=== PATIENT | female | born 1935 | race Caucasian/White ===

== ENCOUNTER → 2017-06-26 14:50 | Outpatient (CLI) | payer MEDICARE | END | disposition home or self-care (01) | LOC: D.MAMMO 09:45 | DX: Z12.31 Encounter for screening mammogram for malignant neoplasm of breast (principal) ==

== ENCOUNTER 2017-09-10 15:37 | Observation (INO) | payer MEDICARE ==
[~2017-09-10] VITALS: Ht 170.2 cm; Wt 72.6 kg
[2017-09-10 16:21] LABS: BASOPHILS 0.3 % (0-2); EOSINOPHILS 1.9 % (0-7); HEMATOCRIT 43.2 % (36.0-48.0); HEMOGLOBIN 14.2 g/dL (12-16); IMMATURE GRANULOCYTES 0.2 % (0-5); LYMPHOCYTES 28.6 % (15-50); MCH 31.4 pg (26.0-34.0); MCHC 32.9 g/dL (31.0-37.0); MCV 95.6 fL (80.0-100.0); MEAN PLATELET VOLUME 10.1 fL (7.4-10.4); MONOCYTES 4.6 % (2-11); NEUTROPHILS 64.4 % (40-80); PLATELET COUNT 210 10x3/uL (130-400); RBC 4.52 10x6/uL (4.00-5.40); RDW 12.6 % (11.5-14.5); WBC 6.5 10x3/uL (4.8-10.8)
[2017-09-10 16:41] LABS: APTT 25.6 SECONDS (22.8-39.4); INR 0.84 (0.85-1.17); PROTIME 11.4 SECONDS (11.6-15.0)
[2017-09-10 16:46] LABS: ALBUMIN 3.8 g/dL (3.4-5.0); ALKALINE PHOSPHATASE 97 U/L (46-116); ALT (SGPT) 27 U/L (10-68); CALC OSMOLALITY 284 mosm/kg (275-300); CALCIUM 9.2 mg/dL (8.5-10.1); CARBON DIOXIDE 26.1 mmol/L (21.0-32.0); CHLORIDE - SERUM 102 mmol/L (98-107); CREATININE - SERUM 0.7 mg/dL (0.6-1.3); GLUCOSE 155 mg/dL (74-106); SODIUM 140 mmol/L (136-145); UREA NITROGEN 20 mg/dL (7-18); eGFR NON AFRICAN AMERICAN 85 mL/min (90-120)
[2017-09-10 19:30] VITALS: BP 150/52
[2017-09-10 22:21] VITALS: BP 150/52; BMI 25.1
--- NOTE | 2017-09-10 22:21 | NUR ---
REC'D PATIENT SITTING UPRIGHT IN CHAIR AT BEDSIDE. ALERT/ORIENTED X3 VELASQUEZ. MACHINE BINDING FOLDER EQUAL AND STRONG SPEECH CLEAR AND APPROPRIATE. FOLLWS COMMANDS. ASSESSMENT PER ADMIT PACKET. IV PATENT LEFT WRIST SALINE LOCK.
[2017-09-10 23:50] VITALS: BP 145/55
[2017-09-11] MEDS ORDERED: WELCHOL625 MG PO (00:30)
[2017-09-11 03:30] VITALS: BP 132/49
[2017-09-11 05:37] LABS: BASOPHILS 0.3 % (0-2); EOSINOPHILS 2.4 % (0-7); HEMOGLOBIN 12.7 g/dL (12-16); MCH 31.2 pg (26.0-34.0); MCHC 32.6 g/dL (31.0-37.0); MCV 95.8 fL (80.0-100.0); MEAN PLATELET VOLUME 10.4 fL (7.4-10.4); MONOCYTES 7.5 % (2-11); NEUTROPHILS 52.8 % (40-80); PLATELET COUNT 199 10x3/uL (130-400); RBC 4.07 10x6/uL (4.00-5.40); RDW 12.6 % (11.5-14.5); WBC 5.7 10x3/uL (4.8-10.8)
[2017-09-11 05:50] LABS: CALC OSMOLALITY 284 mosm/kg (275-300); CALCIUM 8.3 mg/dL (8.5-10.1); CARBON DIOXIDE 27.9 mmol/L (21.0-32.0); CHLORIDE - SERUM 104 mmol/L (98-107); CREATININE - SERUM 0.6 mg/dL (0.6-1.3); GLUCOSE 112 mg/dL (74-106); POTASSIUM - SERUM 3.7 mmol/L (3.5-5.1); SODIUM 142 mmol/L (136-145); eGFR NON AFRICAN AMERICAN > 90 mL/min (90-120)
[2017-09-11 05:52] LABS: UREA NITROGEN 14 mg/dL (7-18)
[2017-09-11] MEDS ORDERED: BAYER CHEWABLE81 MG PO (06:04)
[2017-09-11] MEDS ORDERED: GLUCOPHAGE1000 MG PO (06:05)
[2017-09-11] MEDS ORDERED: GLUCOPHAGE500 MG PO (06:10)
[2017-09-11] MEDS ORDERED: LANOXIN250 MCG PO (06:11)
[2017-09-11] MEDS ORDERED: NORVASC5 MG PO (06:12)
[2017-09-11] MEDS ORDERED: LOTENSIN20 MG PO (06:17)
[2017-09-11] MEDS ORDERED: CARDURA2 MG PO (06:18)
[2017-09-11] MEDS ORDERED: FISH OIL 1,0001 CA1 PO (06:21)
[2017-09-11] MEDS ORDERED: METAMUCIL FIB1 WAFER PO (06:22)
[2017-09-11] MEDS ORDERED: CALCIUM 500 + D1 TAB PO (06:25)
--- NOTE | 2017-09-11 07:02 | HP ---
PATIENT: SOPHIA CARNEY MEDICAL RECORD: [id number] ACCOUNT: [id number] LOCATION:D.MS [facility] : 37 ADMISSION DATE: 09/10/17 HISTORY AND PHYSICAL EXAMINATION DATE OF ADMISSION: 09/10/2017 CHIEF COMPLAINT: Dysarthria. HISTORY OF PRESENT ILLNESS: The patient is a 81-year-old female who states she was in her normal state of health until approximately 1:00 today. The patient states she has been under a lot of stress, has been having visual disturbance and also having a lot of family issues. The patient was noted to have slurring of her speech by her . This lasted approximately an hour and half to 2 hours. The patient presented to the Emergency Room for evaluation. PAST MEDICAL HISTORY: Significant that she has had a history of having hypertension. She has also had history of SVT, diabetes mellitus, hyperlipidemia, squamous cell carcinoma - skin cancers, peripheral neuropathy secondary to diabetes, postmenopausal syndrome. She is a . FAMILY HISTORY: Mother had myocardial infarction, at 93 years of age, also had malignant tumor of the breast in 2 aunts. Father at 48 years of age of CVA. 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 She is . Former smoker, stopped in 1995. She does drink 2 glasses of wine every . MEDICATIONS: Include Welchol 625 mg 3 tablets p.o. b.i.d., vitamin D 2000 international units once a day, ProAir 90 mcg 2 puffs q. 4 hours p.r.n. shortness of breath, metformin 500 mg 2 tabs p.o. b.i.d. 1 at noon, Lotrel 5/20 one p.o. every day, iron 65 mg 1 p.o. every day, fish oil 200 mg p.o. b.i.d., doxazosin 2 mg daily, digoxin 0.25 p.o. every day, calcium 1200 mg once a day, and aspirin 81 mg once a day. ALLERGIES: HER ALLERGIES ARE ACTOS, CORTISONE, CORTANE, KEFLEX, PEROXIDE WELL SULFA. PAST SURGICAL HISTORY: She had an appendectomy. She has also had a cholecystectomy, hysterectomy, tonsillectomy, and adenoidectomy. REVIEW OF SYSTEMS: CONSTITUTIONAL: She denies any headaches, seizure or syncope. She denies change in visual or auditory acuity. PULMONARY: She denies any shortness of breath, cough or congestion, history of TB, asthma or bronchitis. CARDIOVASCULAR: No chest pain, palpitations, PND or orthopnea. GASTROINTESTINAL: No chronic nausea, vomiting, melena or hematochezia. GENITOURINARY: No urgency, frequency, or dysuria. PHYSICAL EXAMINATION: GENERAL: Currently, the patient is asymptomatic initially in the Emergency Room. VITAL SIGNS: Her pulse 86, respirations 16, her blood pressure 160/69 and O2 HISTORY AND PHYSICAL [id number] SOPHIA CARNEY sat was 96%. HEENT: Head is normocephalic. No lesions. Ears: TMs clear. Eyes: Pupils equal, round and reactive to light. Extraocular movements intact. Nasal cavity, oral cavity and oropharynx clear. NECK: Supple. There is no adenopathy. The patient has no carotid bruits that can be appreciated. HEART: Regular rate without murmurs, gallops or rubs. LUNGS: Clear. ABDOMEN: Soft, bowel sounds are positive. No organomegaly. NEUROLOGIC: She has no neurological deficits noted. Her hand university controller strength is 5/5. Vfiqmq-dnha-eqzpox and yaeu-hm-twzt testing is normal. Tandem gait, heel walking and toe walking. DIAGNOSTIC STUDIES: The patient did have a CT scan showing no evidence of hemorrhagic stroke. She did have some microangiopathic lesions noted. ASSESSMENT: 1. Transient ischemic attack, now resolved. 2. History of hypertension. 3. Diabetes mellitus. 4. Hyperlipidemia. PLAN: The patient will be admitted. She will have carotid Doppler as well as echocardiogram. Also, the patient will be placed on anticoagulants. Continue to evaluate. TRANSINT:[id number] Voice Confirmation ID: [id number] DOCUMENT ID: [id number] MICHELLE MENDEZ MD at 0702 CC: [id number] DICTATION DATE: 09/10/171751 WILDLIFE REMOVAL SPECIALIST: 09/10/171931 ADM IN [facility] [address] [place] [address]
[2017-09-11 07:52] VITALS: BP 128/56
--- NOTE | 2017-09-11 09:00 | NUR ---
PT WAS RECEIVED FROM LOW BREWER. PT IS SITTING UP IN [facility]. SHE OFFERS NO COMPLAINTS. SHE STATES WHEN ALL HER TEST ARE DONE THAT SHE IS GOING HOME. I BELIEVE SHE IS WAITING ON HER ECHO TO BE DONE. GEN- AWAKE AND ALERT- LUNGS- CLEAR. HEART- RRR. ABD- SOFT NT. BS+ EXT. NO EDEMA. GOOD STRENGTH BILATERALLY. SALINE LOCK IS PATENT IN LEFT WRIST. BED IS LOW, SIDE RAILS UP X 2 AND CALL LIGHT IN REACH.
[2017-09-11 10:28] VITALS: Ht 170.2 cm; Wt 72.6 kg
--- NOTE | 2017-09-11 11:53 | NUR ---
PT IS SITTING UP IN CHAIR. SHE HAD HER ECHO CARDIOGRAM AND I TALKED TO DR VALENCIA AND HE STATED THAT AFTER HER ECHO SHE COULD BE DISCHARGED. SHE IS TO CONTIN UE HER PRESENT MEDS AND INCREASE ASA TO 325 MG DAILY. SHE NEEDS FU WITH HIM IN 1 WEEK.
[2017-09-11 12:00] VITALS: BP 155/50
--- NOTE | 2017-09-11 13:17 | NUR ---
SALINE LOCK D'CD. TIP INTACT. PT IS DRESSED AND SITTING UP IN CHAIR. DISCHARGE INSTRUCTIONS GIVEN AND HANDOUTS GIVEN. PT TAKEN TO FRONT OF HOSPITAL BY WHEELCHAIR.
--- NOTE | 2017-09-16 09:02 | EC ---
PATIENT:SOPHIA CARNEY DATE OF SERVICE: 09/10/17 SEX: F MEDICAL RECORD: [id number] DATE OF : 39 LOCATION:D.MS [facility] AGE OF PATIENT: 81 ADMISSION DATE: 09/10/17 REFERRING PHYSICIAN: INTERPRETING PHYSICIAN: KARIS RAMSEY MD ECHOCARDIOGRAM REPORT ECHO CHARGES CLINICAL DIAGNOSIS: ECHOCARDIOGRAPHIC MEASUREMENTS (adult normal given) AC root (d.<3.7cm) cm LV Septum d (<1.2 cm> cm Valve Excursion cm LV Septum (systole) cm Left Atria (s.<4.0cm> cm LVPW d(<1.2cm) cm RV (d.<2.3cm) cm LVPW (sytole) cm LV diastole(<5.6CM) cm MV E-F(>70mm/sec) cm LV systole cm LVOT Diameter cm MV exc.(>10mm) cm Est.ejection fraction (50-75%) % Pericardial Effusion DOPPLER: LVIT cm/sec A cm/sec E cm/sec LA cm/sec RVSP mmHg LVOT cm/sec AOP1/2T m/s Asc. Ao cm/sec RVOT cm/sec RA cm/sec PA cm/sec AV Gradient Peak mmHg AV Mean mmHg AV Area cm MV Gradient Peak mmHg MV Mean mmHg MV Area cm COMMENTS: Ux Design Manager: Apple Thinner: DENNY DATE OF SERVICE: 09/11/2017 PROCEDURE: Echocardiogram. FINDINGS: 1. Left ventricular chamber size is within normal limits. Left ventricular systolic function is normal. Overall ejection fraction estimated at 55%. 2. Left atrium, right atrium, and right ventricular chamber sizes are within normal limits. 3. Valvular structures have normal structure and motion. ECHOCARDIOGRAM REPORT [id number] SOPHIA CARNEY 4. Doppler interrogation only reveals trace mitral regurgitation, trace tricuspid regurgitation. No other valvular insufficiency or stenosis. 5. No evidence of pericardial effusion or left ventricular thrombus. TRANSINT:[id number] Voice Confirmation ID: [id number] DOCUMENT ID: [id number] KARIS RAMSEY MD at 0902 CC: [id number] DICTATION DATE: 09/11/17 1209 EXPERIMENTAL ROCKET SLED MECHANIC: 09/11/17 1235 DIS IN 09/11/[address] [place] [address]
--- NOTE | 2017-11-05 07:19 | DS ---
PATIENT:SOPHIA CARNEY :39 MEDICAL RECORD: [id number] DISCHARGE SUMMARY ADMISSION DATE: 09/10/17 DISCHARGE DATE: 09/11/17 DATE OF ADMISSION: 09/10/2017 DATE OF DISCHARGE: 09/11/2017 CONDITION ON DISCHARGE: Improved. ADMITTING DIAGNOSES: Transient ischemic attack, now resolved; history of hypertension; hyperlipidemia; diabetes mellitus. DISCHARGE DIAGNOSES: Dysarthria, transient ischemic attack, diabetes mellitus, hyperlipidemia, and hypertension. HOSPITAL COURSE: The patient is a healthy 82-year-old female with long-standing history of diabetes mellitus. She states that, at approximately 1:00 p.m., she had developed some visual disturbance. She did have some slurring of her speech. This lasted approximately an hour to two hours. She presented to the Emergency Room. In the Emergency Room, the patient was totally asymptomatic. PHYSICAL EXAMINATION: VITAL SIGNS: Her pulse was 86, respirations 16, blood pressure 160/69, and her O2 sat was within normal. HEENT: Unremarkable. NECK: Supple. There was no adenopathy. HEART: Regular rate and rhythm without murmurs, gallops, or rubs. LUNGS: Clear. The patient had a noncontrast CT scan, showed no hemorrhagic stroke. She did have some microangiopathic lesions noted. The patient was admitted. Carotid Dopplers and echo were performed. Echocardiogram revealed left ventricular chamber size to be within normal limits. Left ventricular systolic function was normal. Overall ejection fraction was 55%. Left atrium, right atrium, and right ventricle chambers were within normal limit. Valvular structures had normal structure and motion. Doppler interrogation only revealed trace mitral regurgitation and trace tricuspid regurgitation. No other valvular insufficiencies or stenosis noted. No evidence of pericardial effusion or left ventricular thrombus. Carotid Dopplers revealed no significant stenosis within either internal carotid arteries. Antegrade flow identified within both vertebral arteries. The remainder of the exam was nonspecific. The patient's symptoms had totally resolved; therefore, the patient was discharged having no further symptoms. DISCHARGE MEDICATIONS: Include Welchol 1875 mg p.o. b.i.d., aspirin 325 daily, metformin 1000 mg p.o. b.i.d. with 500 mg at noon, Lanoxin 0.25 p.o. daily, Norvasc 5 mg once a day, Lotensin 20 mg p.o. daily, Cardura 2 mg p.o. at bedtime, omega-3 one cap daily, Metamucil fiber daily, vitamin D3 500 mg daily. ACTIVITIES: Ad gordon. FOLLOWUP: She will follow up with me on September 18. DIET: 2200-calorie ADA diet. DISCHARGE SUMMARY REPORT [id number] SOPHIA CARNEY TRANSINT:[id number] Voice Confirmation ID: [id number] DOCUMENT ID: [id number] MICHELLE MENDEZ MD at 0719 CC: [id number] DICTATION DATE: 11/03/[address] ENGINEER FREIGHT: 11/04/17 1355 DIS IN 09/11/17 [facility] [address] [place] [address]
== END 2017-09-11 16:30 | disposition home or self-care (01) ==
LOC: D.ER 15:37 → OBSVTIME 17:40 → D.MS 17:40 → D.SDCHOLD 17:40 → D.MS 17:40 → D.SDCHOLD 09-11 15:59 → D.MS 09-11 16:01
PROVIDERS: Emergency Medicine; ADMIT Family Medicine
DX: G45.9 Transient cerebral ischemic attack, unspecified (principal); R47.1 Dysarthria and anarthria; E11.42 Type 2 diabetes mellitus with diabetic polyneuropathy; E78.5 Hyperlipidemia, unspecified; I10 Essential (primary) hypertension

== ENCOUNTER 2018-07-04 22:29 | Outpatient (CLI) | payer MEDICARE ==
[2017-09-11 10:28] VITALS: BMI 25.0
[~2018-07-04 22:29] MED LIST: BAYER CHEWABLE81 MG PO; CALCIUM 500 + D1 TAB PO; CARDURA2 MG PO; FISH OIL 1,0001 CA1 PO; GLUCOPHAGE1000 MG PO; GLUCOPHAGE500 MG PO; LANOXIN250 MCG PO; LOTENSIN20 MG PO; METAMUCIL FIB1 WAFER PO; NORVASC5 MG PO; WELCHOL625 MG PO
== END 2018-07-04 23:59 | disposition home or self-care (01) ==
LOC: D.MAMMO 22:29
DX: Z12.31 Encounter for screening mammogram for malignant neoplasm of breast (principal)

== ENCOUNTER 2019-07-20 08:00 | Outpatient (CLI) | payer MEDICARE ==
[2017-09-11 10:28] VITALS: BMI 25.0
== END 2019-07-20 23:59 | disposition home or self-care (01) ==
LOC: D.MAMMO 08:00
PROVIDERS: ATTEND Family Medicine
DX: Z12.31 Encounter for screening mammogram for malignant neoplasm of breast (principal)

== ENCOUNTER 2019-09-03 08:00 | Outpatient (CLI) | payer MEDICARE ==
[2017-09-11 10:28] VITALS: BMI 25.0
== END 2019-09-03 10:00 | disposition home or self-care (01) ==
LOC: D.MAMMO 08:00
PROVIDERS: ATTEND Family Medicine
DX: R92.2 Inconclusive mammogram (principal)

== ENCOUNTER → 2020-05-10 11:32 | Outpatient (CLI) | payer MEDICARE ==
[2017-09-11 10:28] VITALS: BMI 25.0
== END | disposition home or self-care (01) ==
LOC: D.RT 11:30
PROVIDERS: ATTEND Family Medicine
DX: R06.2 Wheezing (principal); Z20.828 Contact with and (suspected) exposure to other viral communicable diseases

== ENCOUNTER → 2020-07-29 11:19 | Outpatient (CLI) | payer MEDICARE ==
[2017-09-11 10:28] VITALS: BMI 25.0
== END | disposition home or self-care (01) ==
LOC: D.LAB 11:19
PROVIDERS: ATTEND Internal Medicine Pulmonary Disease
DX: Z11.59 Encounter for screening for other viral diseases (principal)

== ENCOUNTER → 2020-08-01 14:49 | Outpatient (CLI) | payer MEDICARE ==
[2017-09-11 10:28] VITALS: BMI 25.0
== END | disposition home or self-care (01) ==
LOC: D.RT 07-27 09:00
PROVIDERS: ATTEND Internal Medicine Pulmonary Disease
DX: R06.09 Other forms of dyspnea (principal); Z11.59 Encounter for screening for other viral diseases

== ENCOUNTER 2020-08-09 16:00 | Outpatient (CLI) | payer MEDICARE ==
[2017-09-11 10:28] VITALS: BMI 25.0
== END 2020-08-09 23:59 | disposition home or self-care (01) ==
LOC: D.MAMMO 16:00
PROVIDERS: ATTEND Family Medicine
DX: Z12.31 Encounter for screening mammogram for malignant neoplasm of breast (principal)

== ENCOUNTER → 2021-02-20 13:08 | Outpatient (CLI) | payer MEDICARE ==
[2017-09-11 10:28] VITALS: BMI 25.0
[2021-02-20 13:55] LABS: ALBUMIN 3.5 g/dL (3.4-5.0); ALKALINE PHOSPHATASE 78 U/L (30-120); ALT (SGPT) 18 U/L (10-68); BILIRUBIN - TOTAL 0.45 mg/dL (0.2-1.3); CALC OSMOLALITY 283 mosm/kg (275-300); CALCIUM 9.9 mg/dL (8.5-10.1); CARBON DIOXIDE 30.6 mmol/L (21.0-32.0); CHLORIDE - SERUM 103 mmol/L (98-107); CREATININE - SERUM 0.7 mg/dL (0.6-1.3); GLUCOSE 123 mg/dL (74-106); POTASSIUM - SERUM 4.5 mmol/L (3.5-5.1); PROTEIN - SERUM 7.3 g/dL (6.4-8.2); SODIUM 141 mmol/L (136-145); UREA NITROGEN 19 mg/dL (7-18); eGFR NON AFRICAN AMERICAN 85 mL/min (90-120)
== END | disposition home or self-care (01) ==
LOC: D.CT 13:08
PROVIDERS: ATTEND Internal Medicine Pulmonary Disease
DX: R04.2 Hemoptysis (principal)

== ENCOUNTER 2021-03-09 09:08 | Day surgery (SDC) | payer MEDICARE ==
[~2021-03-09] VITALS: Ht 165.1 cm; Wt 66.2 kg
[2021-03-09 09:33] LABS: BASOPHILS 0.6 % (0-2); EOSINOPHILS 1.2 % (0-7); HEMATOCRIT 39.2 % (36.0-48.0); HEMOGLOBIN 12.9 g/dL (12-16); LYMPHOCYTES 16.3 % (15-50); MCH 30.1 pg (26.0-34.0); MCHC 32.9 g/dL (31.0-37.0); MCV 91.4 fL (80.0-100.0); MEAN PLATELET VOLUME 7.4 fL (7.4-10.4); NEUTROPHILS 75.9 % (40-80); PLATELET COUNT 211 10x3/uL (130-400); RBC 4.29 10x6/uL (4.00-5.40); RDW 13.8 % (11.5-14.5); WBC 6.6 10x3/uL (4.8-10.8)
[2021-03-09 09:57] LABS: INR 0.97 (0.85-1.17); PROTIME 11.9 SECONDS (11.6-15.0)
[2021-03-09 09:58] LABS: APTT 27.9 SECONDS (22.8-39.4)
[2021-03-09 11:11] LABS: CALC OSMOLALITY 286 mosm/kg (275-300); CALCIUM 8.8 mg/dL (8.5-10.1); CARBON DIOXIDE 30.9 mmol/L (21.0-32.0); CHLORIDE - SERUM 105 mmol/L (98-107); CREATININE - SERUM 0.6 mg/dL (0.6-1.3); GLUCOSE 127 mg/dL (74-106); SODIUM 143 mmol/L (136-145); UREA NITROGEN 13 mg/dL (7-18); eGFR NON AFRICAN AMERICAN > 90 mL/min (90-120)
[2021-03-09 11:12] VITALS: Ht 165.1 cm; Wt 66.2 kg
[2021-03-09] MEDS ORDERED: COREG 3.1253.125 MG PO (11:27)
[2021-03-09] MEDS ORDERED: CRESTOR5 MG PO (11:46)
[2021-03-09] MEDS ORDERED: BREO ELLIPTA 11 EACH INH (11:46)
[2021-03-09] MEDS ORDERED: MERIBIN5 MG PO (11:47)
[2021-03-09] MEDS ORDERED: FLUTICASONE PRO16 GM NASAL (11:47)
[2021-03-09] MEDS ORDERED: FERROUS SULFAT325 MG PO (11:47)
[2021-03-09] MEDS ORDERED: MULTI-DAY VITAM1 TAB PO (11:48)
[2021-03-09] MEDS ORDERED: VITAMIN D325 MC1 PO (11:49)
--- NOTE | 2021-03-09 14:37 | NUR ---
DR HUTCHISON AT BEDSIDE. INFORMED PT IS 92% ON 4L. HE STATED "SHE IS GOING TO BE A LITTLE LOW AFTER RIGHT" PT IS AWAKE AND ALERT AND ORIENTED. STATES NO DIFFICUTLY BREATHING. NOT COUGHING AT ALL. PT LAID FLAT AND STATED NO DIFFICULTY BREATHING.
--- NOTE | 2021-03-09 15:00 | NUR ---
PT OCCASIONAL COUGHING, SPIT UP SMALL RED TINGED SPUTUM ON PAPER TOWEL. [address] HERNANDEZ TO NOTIFY OF SMALL BLOODY SPUTUM. 1530 DR AT BEDSIDE AND SAW SPUTUM MENTIONED ABOVE. PT SWISH AND SPIT WATER TO MOISTEN MOUTH. PER DR. HERNANDEZ PT IS TO BE NPO FOR 2 HOURS- UNTIL 1730. PER DR. HERNANDEZ, RESPIRATORY BROUGHT TO PT AN INCENTIVE SPIROMETER AND TAUGHT PT. RESPIRATORY THERAPIST MOVED O2 LEVEL TO 5L STATING PTS O2 SAT WAS DROPPING PER DR. HERNANDEZ THIS NURSE INFORMED PT TO USE OXYGEN BY NC CONSTANTLY FOR 24 HOURS AND TO USE THE INCENTIVE SPIROMETER THREE TIMES A DAY/10 REPS EACH TIME. THIS NURSE REINFORCED TEACHING ON THE INCENTIVE SPIROMETER. PT VERBALIZED UNDERSTANDING. DR. HERNANDEZ'S OFFICE WILL CALL PT AND CHECK ON PT TOMORROW. 1715 TRIAL OFF OF OXYGEN THERAPY, PT'S O2 SAT DROPPED TO 88 RA, SITTING UPRIGHT TAKING DEEP BREATHS. RETURNED PT TO 2L OF OXYGEN BY NC AND O2 SATS WERE RANGING BETWEEN 90-91. 1722 THIS NURSE CALLED [facility] AND SPOKE TO RO TO REQUEST A RIDE FOR THE PATIENT UPON DISCHARGE AROUND 6PM 1735 PT DRINKING SPRITE WITH NO COMPLICATIONS, THEN ATE A ANSLEY CRACKER WITH NO COMPLICATIONS, O2 SAT [address] HERNANDEZ, THIS NURSE INFORMED PT TO NOT TAKE HER ASPIRIN OR FISH OIL OR ANY NSAIDS UNTIL DR HERNANDEZ ADVISES HER TO. SHEET ON NSAIDS INCLUDED IN DC PACKET. DC TEACHING COMPLETED. 1800 PT VOIDED IN BATHROOM WITHOUT OXYGEN ON , RETURNED TO SIT ON SIDE OF BED BEGINNING TO PUT PANTS AND SHOES ON, O2 SAT DROPPED TO 85. PLACED NC BACK ON PT, 2L, O2 SAT RETURNED TO 91 PIV REMOVED WITH CATHETER INTACT. 1840 [employer] EMPLOYEE BROUGHT PORTABLE O2 TANK AND INSTRUCTED PT ON HOW TO USE, CURRENT SETTING 2L "CONSERVE"--O2 SAT 91 PT VOIDED IN BATHROOM AND FINISHED DRESSING. 1850 PT DC'D VIA ACCOMPANIED BY THIS NURSE WITH ALL BELONGINGS, PORTABLE O2 TANK, NASAL CANNULA ON, AND DC PACKET TO POV WITH DIRECTOR OF FOOD AND NUTRITION FROM [employer] [facility].
== END 2021-03-09 18:50 ==
LOC: D.OPS 09:08
PROVIDERS: Anesthesiology; ATTEND Internal Medicine Pulmonary Disease
DX: R91.8 Other nonspecific abnormal finding of lung field (principal); J98.4 Other disorders of lung; J44.9 Chronic obstructive pulmonary disease, unspecified; J31.0 Chronic rhinitis; I10 Essential (primary) hypertension; R59.1 Generalized enlarged lymph nodes; E11.9 Type 2 diabetes mellitus without complications; J96.11 Chronic respiratory failure with hypoxia; Z87.891 Personal history of nicotine dependence; R59.0 Localized enlarged lymph nodes

== ENCOUNTER 2021-03-10 12:02 | Inpatient (IN) | payer MEDICARE ==
[2021-03-10] VITALS (14 sets, daily range): BP systolic 130–170; BP diastolic 58–74; BMI 28.4
[~2021-03-10] VITALS: Ht 165.1 cm; Wt 83.6 kg
[~2021-03-10 12:02] MED LIST changes: +BREO ELLIPTA 11 EACH INH; +COREG 3.1253.125 MG PO; +CRESTOR5 MG PO; +FERROUS SULFAT325 MG PO; +FLUTICASONE PRO16 GM NASAL; +MERIBIN5 MG PO; +MULTI-DAY VITAM1 TAB PO; +VITAMIN D325 MC1 PO
--- NOTE | 2021-03-10 12:20 | NUR ---
PATIENT TO T3 VIA WHEELCHAIR. ON NASAL O2 AT 2 L/M WITH SPO2 OF 82. O2 INCREASED TO 6L/M WITH INCREASE TO 88%. PATIENT C/O PAIN AROUND CHEST AND BACK "LIKE A BAND". SOB. CXR AND ABGS ORDERED.
--- NOTE | 2021-03-10 12:30 | NUR ---
DR. HERNANDEZ HERE. STATES TX PATIENT TO ICU FOR INTUBATION AND BRONCHOSCOPY.
[2021-03-10 12:45] LABS: BASOPHILS 0.3 % (0-2); EOSINOPHILS 0.3 % (0-7); HEMATOCRIT 39.4 % (36.0-48.0); HEMOGLOBIN 13.1 g/dL (12-16); LYMPHOCYTES 14.9 % (15-50); MCH 30.6 pg (26.0-34.0); MCHC 33.2 g/dL (31.0-37.0); MCV 92.2 fL (80.0-100.0); MEAN PLATELET VOLUME 7.9 fL (7.4-10.4); MONOCYTES 4.9 % (2-11); NEUTROPHILS 79.6 % (40-80); PLATELET COUNT 224 10x3/uL (130-400); RBC 4.27 10x6/uL (4.00-5.40); RDW 13.9 % (11.5-14.5)
--- NOTE | 2021-03-10 12:45 | NUR ---
SUPERVISOR MECHANIC BOILERMAKING NOTIFIED OF NEED FOR ICU BED.
[2021-03-10 12:47] LABS: WBC 9.9 10x3/uL (4.8-10.8)
[2021-03-10 12:56] LABS: APTT 26.6 SECONDS (22.8-39.4); CALC OSMOLALITY 283 mosm/kg (275-300); CARBON DIOXIDE 29.2 mmol/L (21.0-32.0); CHLORIDE - SERUM 104 mmol/L (98-107); CREATININE - SERUM 0.8 mg/dL (0.6-1.3); GLUCOSE 124 mg/dL (74-106); INR 0.99 (0.85-1.17); POTASSIUM - SERUM 4.3 mmol/L (3.5-5.1); PROTIME 12.1 SECONDS (11.6-15.0); SODIUM 141 mmol/L (136-145); UREA NITROGEN 18 mg/dL (7-18); eGFR NON AFRICAN AMERICAN 72 mL/min (90-120)
[2021-03-10 13:11] LABS: ALBUMIN 3.1 g/dL (3.4-5.0); ALKALINE PHOSPHATASE 69 U/L (30-120); ALT (SGPT) 17 U/L (10-68); BILIRUBIN - TOTAL 0.36 mg/dL (0.2-1.3); CREATINE KINASE 54 UL (21-215); TROPONIN-I < 0.017 ng/mL (0.000-0.060)
--- NOTE | 2021-03-10 13:50 | NUR ---
SPO2 NOW 95-97 ON NRB. WAITING ON ROOM ASSIGNMENT FOR ICU BED.
--- NOTE | 2021-03-10 13:55 | NUR ---
CHIEF ANALYTICS OFFICER CALLED AGAIN FOR BED ASSIGNMENT. PATIENT STABLE. AT BEDSIDE.
[2021-03-11] VITALS (24 sets, daily range): BP systolic 120–157; BP diastolic 50–76; BMI 28.4
[2021-03-11 05:11] LABS: BASOPHILS 0.2 % (0-2); EOSINOPHILS 0.4 % (0-7); HEMATOCRIT 36.2 % (36.0-48.0); HEMOGLOBIN 11.9 g/dL (12-16); MCH 30.2 pg (26.0-34.0); MCHC 32.8 g/dL (31.0-37.0); MCV 92.2 fL (80.0-100.0); MEAN PLATELET VOLUME 8.2 fL (7.4-10.4); MONOCYTES 4.3 % (2-11); NEUTROPHILS 82.1 % (40-80); PLATELET COUNT 191 10x3/uL (130-400); RBC 3.92 10x6/uL (4.00-5.40); WBC 8.3 10x3/uL (4.8-10.8)
[2021-03-11 05:24] LABS: ALBUMIN 2.5 g/dL (3.4-5.0); ALKALINE PHOSPHATASE 59 U/L (30-120); ALT (SGPT) 14 U/L (10-68); BILIRUBIN - TOTAL 0.26 mg/dL (0.2-1.3); CALCIUM 8.1 mg/dL (8.5-10.1); CHLORIDE - SERUM 104 mmol/L (98-107); GLUCOSE 108 mg/dL (74-106); PROTEIN - SERUM 5.8 g/dL (6.4-8.2); SODIUM 138 mmol/L (136-145)
[2021-03-11 05:27] LABS: CALC OSMOLALITY 276 mosm/kg (275-300); CREATININE - SERUM 0.4 mg/dL (0.6-1.3); UREA NITROGEN 12 mg/dL (7-18); eGFR NON AFRICAN AMERICAN > 90 mL/min (90-120)
--- NOTE | 2021-03-11 06:13 | NUR ---
AM LABS REVIEWED, NOTHING TO TREAT PER ELECTROLYTE PROTOCOL.
--- NOTE | 2021-03-11 08:25 | NUR ---
UPDATED. BRONCH CONSENT OBTAINED.
--- NOTE | 2021-03-11 10:05 | NUR ---
BRONCH COMPLETED AT BEDSIDE. REMAINS STABLE ON VENT.
--- NOTE | 2021-03-11 11:09 | NUR ---
TF STARTED PER ORDER.
--- NOTE | 2021-03-11 12:29 | NUR ---
WENT INTO [address]. TEMPLETON NOTIFIED.
--- NOTE | 2021-03-11 14:19 | NUR ---
UNCERTAIN IF CVL DRSG WAS CHANGED WED. CHANGED NOW USING STERILE TECHNIQUE. COMPLETE CHG BED BATH GIVEN.
--- NOTE | 2021-03-11 17:57 | NUR ---
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 MYRON MONROY RN, NM, NOTIFIED AND SHE OKAYS THE 2 VISITORS.
--- NOTE | 2021-03-11 19:44 | NUR ---
BEDSIDE SHIFT REPORT RECEIVED. PT INTUBATED AND SEDATED. 8.0 ETT, 24 @LIP. 20G TO RIGHT AC WITH NS @75ML/HR AND PROPOFOL @60MEQ/KG/MIN. BARR WITH CLEAR YELLOW URINE. BILAT WRISTS RESTRAINTS WITH RADIAL PULSES PALPABLE. SCD'S IN PLACE. 0GT ASCULATED IN PLACE WITHOUT RESIDUAL TUBE FEED WITH PULMACARE @20ML/HR AND 10ML H20 FLUSH Q1H. NO FAMILY AT BEDSIDE AT THIS TIME. WILL CONT TO ASSESS.
--- NOTE | 2021-03-11 22:33 | NUR ---
PT GILMER CARNEY CALLED, PASSWORD CONFIRMED AND PT UPDATED ON PT STATUS, DISCUSSED DR HERNANDEZ TO PREFORM BRONCHOSCOPEY IN MORNING 03/12/21, TELEPHONE CONSENT OBTAINED AND PLACED IN PT CHART.
[2021-03-12] VITALS (25 sets, daily range): BP systolic 130–161; BP diastolic 52–71
--- NOTE | 2021-03-12 00:44 | NUR ---
PT TUBE FEEDING STOPPED AT 0000 FOR PROCEDURE IN MORNING.
--- NOTE | 2021-03-12 02:59 | NUR ---
FULL BED BATH WITH SOAP, WATER AND CHG, COMPLETE LINEN AND GOWN CHANGED. BARRIER CREAM APPLIED TO CARSON AREA. PT REPOSTIONED. RESTRAINTS SECURED. NO DISTRESS NOTED. WILL CONT TO MONITOR.
[2021-03-12 06:15] LABS: BASOPHILS 0.1 % (0-2); EOSINOPHILS 0 % (0-7); HEMATOCRIT 34.5 % (36.0-48.0); HEMOGLOBIN 11.6 g/dL (12-16); LYMPHOCYTES 8.4 % (15-50); MCH 30.6 pg (26.0-34.0); MCHC 33.5 g/dL (31.0-37.0); MCV 91.3 fL (80.0-100.0); MEAN PLATELET VOLUME 8.6 fL (7.4-10.4); MONOCYTES 2.1 % (2-11); NEUTROPHILS 89.4 % (40-80); PLATELET COUNT 197 10x3/uL (130-400); RBC 3.78 10x6/uL (4.00-5.40); RDW 13.8 % (11.5-14.5); WBC 6.4 10x3/uL (4.8-10.8)
[2021-03-12 06:20] LABS: ALBUMIN 2.2 g/dL (3.4-5.0); ALKALINE PHOSPHATASE 64 U/L (30-120); ALT (SGPT) 19 U/L (10-68); BILIRUBIN - TOTAL 0.22 mg/dL (0.2-1.3); CALC OSMOLALITY 284 mosm/kg (275-300); CALCIUM 8.2 mg/dL (8.5-10.1); CARBON DIOXIDE 24.8 mmol/L (21.0-32.0); CHLORIDE - SERUM 107 mmol/L (98-107); CREATININE - SERUM 0.5 mg/dL (0.6-1.3); GLUCOSE 154 mg/dL (74-106); POTASSIUM - SERUM 4.1 mmol/L (3.5-5.1); PROTEIN - SERUM 5.9 g/dL (6.4-8.2); SODIUM 142 mmol/L (136-145); UREA NITROGEN 11 mg/dL (7-18); eGFR NON AFRICAN AMERICAN > 90 mL/min (90-120)
--- NOTE | 2021-03-12 07:10 | NUR ---
REPORT RECEIVED FROM OFF GOING NURSE AND PATIENT CARE ASSUMED. PATIENT LAYING IN BED ON BACK WITH HOB ELEVATED [address] PT ON VENT. VSS. ALL LINES TUBES AND BARR CHECKED. WILL CONTINUE WITH PLAN OF CARE. SR UP X 2 BED IN LOW POSITION AND CALL LIGHT IN REACH.
--- NOTE | 2021-03-12 07:45 | NUR ---
PATIENTS CALLED. ANSWERED QUESTIONS TO SATISFACTION.
--- NOTE | 2021-03-12 09:20 | NUR ---
PATIENT UNDERWENT BRONCHOSCOPY WITH DR HERNANDEZ AND RT KRISTEN. VSS. STAT CXR COMPLETED. NG TUBE VERIFIED BY AUSCULATATION AND CXR. TUBE FEEDING RESUMED. WILL CONTINUE TO MONITOR. SR UP X 2 BED IN LOW POSITON AND CALL LIGHT IN REACH.
--- NOTE | 2021-03-12 10:06 | NUR ---
PRESSURE SUPPORT TRIAL STARTED AT 0935 FOLLOWING BESIDE BRONCHOSCOPY. 09/24 80%. TITRATING TO MAINTAIN SPO2 >92%. PT IS DOING WELL AT THIS TIME WITH MINIMUM COACHING RESTING WELL. RSBI 29, 74 HR , 96% SPO2.
--- NOTE | 2021-03-12 10:19 | NUR ---
TRIAL ENDED AT [address] HERNANDEZ ORDERS. PT PLACED BACK ON RATE AC/VC 16/400/65%/5. 30 MIN TRIAL TONIGHT ORDERED WITH TITRATING FI02.
[2021-03-12 12:35] LABS: BACTERIA FEW HPF (NONE SEEN); BILIRUBIN NEGATIVE (NEGATIVE); KETONE MODERATE mg/dL (NEGATIVE); NITRITE NEGATIVE (NEGATIVE); SQUAMOUS EPITHELIAL 0-5 HPF (0-4); UROBILINOGEN NORMAL mg/dL (< 2); WHITE CELLS - URINE 0-5 HPF (0-4)
--- NOTE | 2021-03-12 14:00 | NUR ---
PATIENT , FAMILY FRIEND AND DR HERNANDEZ IN ROOM. DR HERNANDEZ SPENT SEVERAL MINUTES ANSWERING QUESTIONS AND SHOWED PICTURES OF BRONCHOSCOPY.
--- NOTE | 2021-03-12 15:31 | NUR ---
P/S TRIAL STARTED AT 1527. 12/5 FIO2 60% RSBI AT THIS TIME IS 42. HR 68 AND SPO2 96%. P/S TRIAL ENDED AT 1541. PT ASKED TO STOP TRIAL COUGHING LOTS AND ASKED TO STOP. PLACED BACK ON RATE AC/VC 60%.
--- NOTE | 2021-03-12 17:36 | NUR ---
PATIENT AND VSS STABLE. WILL CONTINUE TO MONITOR. SR UP X 2 BED IN LOW POSITION AND CALL LIGHT IN REACH.
--- NOTE | 2021-03-12 19:40 | NUR ---
BEDSIDE SHIFT REPORT RECEIVED AT 1850. PT INTUBATED AND SEDATED WITH PROPOFOL AT 60MCG/KG/MIN TO 20G PIV IN RIGHT WRIST. NS @75 TO 20G PIV TO KIMI. PT OPENS EYES SPONTANEOUSLY, FOLLOWS COMMANDS, EQUAL MOLD MAINTENANCE TECHNICIAN AND DORSAL FLEXATION. PERRLA. 8.0 ETT 24 @ LIP. PT RR SET AT 16, PT BREATHING 20 BPM, ATTEMPTING TO MOUTH WORDS, STARTED FENT GTT @ 50 MCG/HR. ORAL CARE PREFORMED, PT REPOSTIONED. BILAT WRIST RESTRAINTS SECURED, RADIAL PULSES STRONG. OGT ASCUALTED IN PLACE AND PULMACARE @30ML/HR WITH 10ML H20 FLUSH Q4H, 30ML ARRIAGA RESIDUAL NOTED. WILL CONT TO ASSESS.
--- NOTE | 2021-03-12 22:14 | NUR ---
PT APPEARS MORE COMFORTABLE WITH ADDITION OF FENT GTT, RESP EVEN WITH VENT SETTINGS. ORAL CARE PREFORMED. WILL CONT TO MONITOR.
[2021-03-13] VITALS (24 sets, daily range): BP systolic 118–154; BP diastolic 49–68; Ht 165.1 cm; Wt 83.6 kg
--- NOTE | 2021-03-13 04:09 | NUR ---
FULL BED BATH WITH SOAP AND WATER AND CHG, HAIR WASHED, LINEN AND GOWN CHANGED. PT AROUSED DURING CARE, RESTING COMFORTABLY AT THIS TIME. BILAT WRIST RESTRAINTS SECURED. SMALL BOWEL MOVEMENT CLEANED, BARRIER OINTMENT APPLIED.
[2021-03-13 05:06] LABS: BASOPHILS 0.1 % (0-2); EOSINOPHILS 0 % (0-7); HEMATOCRIT 32.6 % (36.0-48.0); HEMOGLOBIN 11.1 g/dL (12-16); LYMPHOCYTES 5.8 % (15-50); MCH 31.4 pg (26.0-34.0); MCV 92.1 fL (80.0-100.0); MEAN PLATELET VOLUME 7.9 fL (7.4-10.4); NEUTROPHILS 90.1 % (40-80); PLATELET COUNT 209 10x3/uL (130-400); RBC 3.54 10x6/uL (4.00-5.40); RDW 13.9 % (11.5-14.5); WBC 7.6 10x3/uL (4.8-10.8)
[2021-03-13 05:19] LABS: ALKALINE PHOSPHATASE 71 U/L (30-120); BILIRUBIN - TOTAL 0.18 mg/dL (0.2-1.3); CALCIUM 7.8 mg/dL (8.5-10.1); CARBON DIOXIDE 27.9 mmol/L (21.0-32.0); CHLORIDE - SERUM 109 mmol/L (98-107); CREATININE - SERUM 0.5 mg/dL (0.6-1.3); MAGNESIUM - SERUM 2.4 mg/dL (1.8-2.4); PHOSPHOROUS 3.1 mg/dL (2.5-4.9); PROTEIN - SERUM 5.5 g/dL (6.4-8.2); SODIUM 141 mmol/L (136-145); eGFR NON AFRICAN AMERICAN > 90 mL/min (90-120)
[2021-03-13 05:29] LABS: ALT (SGPT) 30 U/L (10-68); CALC OSMOLALITY 290 mosm/kg (275-300); GLUCOSE 219 mg/dL (74-106); UREA NITROGEN 20 mg/dL (7-18)
--- NOTE | 2021-03-13 11:30 | NUR ---
CALLED DR LOCKE FOR CONSULT FOR ENDOBRONCHIAL STENT AND CENTAL LINE PLACEMENT
--- NOTE | 2021-03-13 12:40 | NUR ---
PATIENT HAVING PERIODS OF BRADYCARDIA AND DR. GARCIA NOTIFIED AND WILL DECREASE PROPOFOL AND VERSEED HAS BEEN ORDERED. WILL NEED A CENTRAL LINE AND HAS SIGNED CONSENT AND LINE TO BE PLACED.
--- NOTE | 2021-03-13 13:16 | NUR ---
Nutrition follow-up: Pt intubated, sedated with propofol at 30 mcg/kg/min Pulmocare infusing @ 40 ml/hr Labs reviewed Wt: 172# +BM' Pt tolerating TF at goal rate of 40 ml/hr TF + propofol @ 14 ml/hr providin kcal (120% est kcal needs) 60 gm protein (85-109% est protein needs) RDN will follow-up: 03/15/21
--- NOTE | 2021-03-13 17:26 | NUR ---
HAVE ATTEMPTED TO CALL X 2 AND LEFT MESSAGE THAT WE NEED TO DISCUSS SOME PROCEDURES THAT WILL BE DONE 03/14/21. DR. LOCKE HERE TO TALK WITH ABOUT PROCEDURE WILL ATTEMPT TO CALL LATER.
--- NOTE | 2021-03-13 20:36 | NUR ---
Verbal consent received from Anjel by telephone, 2nd Witness Debbie Bain LPN, for bronchoscopy to be performed by Dr. Jeffy Vaughan 03/14/21. Hardcopy placed in patient's chart.
--- NOTE | 2021-03-13 21:33 | NUR ---
Patient tearful, communicates using writing. States it is difficult for her to breathe, and asks if she is going to . Reassurance given, plan of care discussed, acknowledged understanding. Propofol infusion restarted for patient comfort.
--- NOTE | 2021-03-13 22:12 | NUR ---
Fentanyl order renewed per Dr. Vaughan's progress note. Medication auto-discontinued per 3 day pharmacy timeframe.
[2021-03-14] VITALS (24 sets, daily range): BP systolic 115–182; BP diastolic 54–77
--- NOTE | 2021-03-14 00:20 | NUR ---
Bradycardia HR 53, Propofol infusion stopped. TF paused, NPO pending bronchoscopy in the morning.
[2021-03-14 05:12] LABS: BASOPHILS 0.1 % (0-2); EOSINOPHILS 0 % (0-7); HEMATOCRIT 34.8 % (36.0-48.0); HEMOGLOBIN 11.5 g/dL (12-16); LYMPHOCYTES 7.8 % (15-50); MCH 30.5 pg (26.0-34.0); MCV 92.4 fL (80.0-100.0); MEAN PLATELET VOLUME 7.8 fL (7.4-10.4); MONOCYTES 6.2 % (2-11); NEUTROPHILS 85.9 % (40-80); PLATELET COUNT 226 10x3/uL (130-400); RBC 3.77 10x6/uL (4.00-5.40); RDW 14.2 % (11.5-14.5); WBC 9.2 10x3/uL (4.8-10.8)
[2021-03-14 05:30] LABS: INR 1.11 (0.85-1.17); PROTIME 13.2 SECONDS (11.6-15.0)
[2021-03-14 05:49] LABS: % SATURATION 13 % (15-55); IRON 25 ug/dl (35-150); TOTAL IRON BIND CAPACITY 179 ug/dl (260-445); UNSAT IRON BIND CAPACITY 154 ug/dl (150-375)
[2021-03-14 06:02] LABS: ALKALINE PHOSPHATASE 76 U/L (30-120); BILIRUBIN - TOTAL 0.23 mg/dL (0.2-1.3); CARBON DIOXIDE 28.1 mmol/L (21.0-32.0); CHLORIDE - SERUM 111 mmol/L (98-107); CREATININE - SERUM 0.5 mg/dL (0.6-1.3); FERRITIN 108 ng/mL (3-244); MAGNESIUM - SERUM 2.5 mg/dL (1.8-2.4); PHOSPHOROUS 3.2 mg/dL (2.5-4.9); POTASSIUM - SERUM 4.4 mmol/L (3.5-5.1); PROTEIN - SERUM 5.6 g/dL (6.4-8.2); SODIUM 142 mmol/L (136-145); UREA NITROGEN 22 mg/dL (7-18); eGFR NON AFRICAN AMERICAN > 90 mL/min (90-120)
[2021-03-14 06:06] LABS: ALT (SGPT) 65 U/L (10-68); CALC OSMOLALITY 289 mosm/kg (275-300); GLUCOSE 170 mg/dL (74-106)
--- NOTE | 2021-03-14 06:35 | NUR ---
Shift summary: Patient alert, expresses wishes through writing. Heart rate decreases with increased Propofol and Fentanyl titrations, sedation with scheduled and prn Versed adequate for comfort.
--- NOTE | 2021-03-14 10:08 | NUR ---
PERMIT FOR PROCEDURE SIGNED BY AND HAVE TALKED WITH PT ABOUT THIS WELL. TUBE FEEDING OFF AT PRESENT FOR PROCEDURE.
--- NOTE | 2021-03-14 10:47 | NUR ---
TALKED WITH CARDIOLOGY ABOUT PATIENT HEAART RATE AND SHE IS NOT A PACEMAKER CANDIDATE AND LONG BP WNL CAN NOT START DOPAMINE FOR HEART RATE.
--- NOTE | 2021-03-14 21:55 | NUR ---
Received call from Anjel, passcode confirmed, update given.
[2021-03-15] VITALS (21 sets, daily range): BP systolic 118–178; BP diastolic 49–88
[2021-03-15 05:28] LABS: BASOPHILS 0.2 % (0-2); EOSINOPHILS 0 % (0-7); HEMATOCRIT 33.9 % (36.0-48.0); HEMOGLOBIN 11.2 g/dL (12-16); LYMPHOCYTES 9.1 % (15-50); MCH 30.8 pg (26.0-34.0); MCHC 33.1 g/dL (31.0-37.0); MCV 93.1 fL (80.0-100.0); MEAN PLATELET VOLUME 8.3 fL (7.4-10.4); MONOCYTES 5.6 % (2-11); NEUTROPHILS 85.1 % (40-80); PLATELET COUNT 208 10x3/uL (130-400); RBC 3.64 10x6/uL (4.00-5.40); WBC 7.4 10x3/uL (4.8-10.8)
[2021-03-15 05:49] LABS: ALBUMIN 1.8 g/dL (3.4-5.0); ALKALINE PHOSPHATASE 90 U/L (30-120); BILIRUBIN - TOTAL 0.27 mg/dL (0.2-1.3); CALC OSMOLALITY 288 mosm/kg (275-300); CALCIUM 7.9 mg/dL (8.5-10.1); CHLORIDE - SERUM 110 mmol/L (98-107); CREATININE - SERUM 0.4 mg/dL (0.6-1.3); GLUCOSE 192 mg/dL (74-106); MAGNESIUM - SERUM 2.2 mg/dL (1.8-2.4); PHOSPHOROUS 2.9 mg/dL (2.5-4.9); POTASSIUM - SERUM 4.4 mmol/L (3.5-5.1); PROTEIN - SERUM 5.2 g/dL (6.4-8.2); SODIUM 141 mmol/L (136-145); UREA NITROGEN 22 mg/dL (7-18); eGFR NON AFRICAN AMERICAN > 90 mL/min (90-120)
[2021-03-15 05:55] LABS: ALT (SGPT) 135 U/L (10-68)
--- NOTE | 2021-03-15 06:35 | NUR ---
Shift summary: Patient follows commands, expresses needs through writing and gesturing. Comfortable with Fentanyl and Versed.
--- NOTE | 2021-03-15 12:56 | NUR ---
Nutrition follow-up: Discussed during IDT team rounds. Pt intubated; sedation off and pt communicating Pulmocare continues @ goal rate of 40 ml/hr Labs reviewed Wt: 183# +BM Weaning trial underway. RDN will follow-up: 03/17/21
--- NOTE | 2021-03-15 12:58 | NUR ---
PATIENT TO CT AND DONE WITH NO PROBLEMS. NEW TUBE FEEDING BAG PLACED AND FEEDING RESTARTED. PATIENT TOLERATING TUBE FEEDINGS.
[2021-03-15 13:12] LABS: FUNGUS STAIN Final report (())
[2021-03-15 16:10] LABS: ACID FAST SMEAR Negative (()); AFB SPECIMEN PROCESSING Concentration (())
[2021-03-16] VITALS (24 sets, daily range): BP systolic 123–173; BP diastolic 52–89
[2021-03-16 04:39] LABS: BASOPHILS 0.2 % (0-2); EOSINOPHILS 0 % (0-7); HEMATOCRIT 36.8 % (36.0-48.0); HEMOGLOBIN 12.1 g/dL (12-16); MCH 30.3 pg (26.0-34.0); MCHC 32.8 g/dL (31.0-37.0); MCV 92.4 fL (80.0-100.0); MEAN PLATELET VOLUME 8.3 fL (7.4-10.4); MONOCYTES 3.7 % (2-11); NEUTROPHILS 89.1 % (40-80); RBC 3.98 10x6/uL (4.00-5.40); RDW 14.3 % (11.5-14.5); WBC 8.2 10x3/uL (4.8-10.8)
[2021-03-16 04:47] LABS: PLATELET COUNT 251 10x3/uL (130-400)
[2021-03-16 04:57] LABS: ALKALINE PHOSPHATASE 107 U/L (30-120); ALT (SGPT) 160 U/L (10-68); BILIRUBIN - TOTAL 0.25 mg/dL (0.2-1.3); CALC OSMOLALITY 290 mosm/kg (275-300); CARBON DIOXIDE 30.2 mmol/L (21.0-32.0); CHLORIDE - SERUM 106 mmol/L (98-107); CREATININE - SERUM 0.5 mg/dL (0.6-1.3); GLUCOSE 214 mg/dL (74-106); PHOSPHOROUS 2.9 mg/dL (2.5-4.9); POTASSIUM - SERUM 4.4 mmol/L (3.5-5.1); PROTEIN - SERUM 5.7 g/dL (6.4-8.2); SODIUM 141 mmol/L (136-145); UREA NITROGEN 23 mg/dL (7-18); eGFR NON AFRICAN AMERICAN > 90 mL/min (90-120)
--- NOTE | 2021-03-16 06:11 | NUR ---
CONSULT CALLED TO DR. HODGE.
--- NOTE | 2021-03-16 07:25 | NUR ---
PT LAYING IN BED RESTING COMFORTABLE, OPENS EYES TO VERBAL STIMULI AND FOLLOWS COMMANDS, DENIES PAIN AT THIS TIME, ORAL CARE PROVIDED AND PT POSITIONED FOR COMFORT, WILL MONITOR
--- NOTE | 2021-03-16 08:05 | NUR ---
Nutrition reassessment: Intubated, sedated Pulmocare @ 40 ml/hr goal rate Labs reviewed WT: 180# - 10# wt gain since admit +BM's Estimated nutritional needs, nutrition diagnosis, nutrition goals, intervetions remain the same as initial assessment on 03/11/21. Pt is tolerating TF @ goal rate of 40 ml/hr. 96% estimated kcal needs, 86-109% estimated protein needs RDN will continue to monitor patients progress toward nutritional goals Follow-up: 03/20/21
--- NOTE | 2021-03-16 12:00 | NUR ---
repositioned for comfort, oral care provided, at bedside, will monitor
--- NOTE | 2021-03-16 14:00 | NUR ---
repositioned at this time, at bedside, denies pain, will monitor
--- NOTE | 2021-03-16 16:16 | NUR ---
no changes, oral care provided and pt repositioned, will monitor
--- NOTE | 2021-03-16 18:17 | NUR ---
repositioned at this time, no distress noted
[2021-03-17] VITALS (21 sets, daily range): BP systolic 120–189; BP diastolic 54–86
[2021-03-17 05:40] LABS: BASOPHILS 0.1 % (0-2); EOSINOPHILS 0 % (0-7); HEMATOCRIT 37.9 % (36.0-48.0); HEMOGLOBIN 12.3 g/dL (12-16); LYMPHOCYTES 6.9 % (15-50); MCH 29.8 pg (26.0-34.0); MCHC 32.4 g/dL (31.0-37.0); MCV 92.1 fL (80.0-100.0); MEAN PLATELET VOLUME 8.2 fL (7.4-10.4); MONOCYTES 4.6 % (2-11); NEUTROPHILS 88.4 % (40-80); PLATELET COUNT 247 10x3/uL (130-400); RBC 4.12 10x6/uL (4.00-5.40); WBC 8.5 10x3/uL (4.8-10.8)
[2021-03-17 06:02] LABS: APTT 24.6 SECONDS (22.8-39.4); INR 1.03 (0.85-1.17); PROTIME 12.9 SECONDS (11.6-15.0)
[2021-03-17 06:34] LABS: ALBUMIN 1.9 g/dL (3.4-5.0); ALKALINE PHOSPHATASE 88 U/L (30-120); BILIRUBIN - TOTAL 0.33 mg/dL (0.2-1.3); CALC OSMOLALITY 287 mosm/kg (275-300); CARBON DIOXIDE 29.9 mmol/L (21.0-32.0); CHLORIDE - SERUM 106 mmol/L (98-107); CREATININE - SERUM 0.5 mg/dL (0.6-1.3); GLUCOSE 190 mg/dL (74-106); MAGNESIUM - SERUM 2.2 mg/dL (1.8-2.4); PHOSPHOROUS 3.1 mg/dL (2.5-4.9); POTASSIUM - SERUM 4.3 mmol/L (3.5-5.1); PROTEIN - SERUM 5.5 g/dL (6.4-8.2); SODIUM 140 mmol/L (136-145); UREA NITROGEN 24 mg/dL (7-18); eGFR NON AFRICAN AMERICAN > 90 mL/min (90-120)
[2021-03-17 06:36] LABS: ALT (SGPT) 112 U/L (10-68)
--- NOTE | 2021-03-17 07:20 | NUR ---
pt resting, responds to verbal stimuli, follows simple commands, oral care provided and repositioned for comfort, will monitor
--- NOTE | 2021-03-17 09:50 | NUR ---
DR GARCIA HERE SEEING PATIENT
--- NOTE | 2021-03-17 10:50 | NUR ---
PT HAS GONE DOWN FOR SURGERY AT THIS TIME
--- NOTE | 2021-03-17 14:05 | NUR ---
PT BACK FROM SURGERY, ETT TUBE 23 AT THE LIP, VENT SETTINGS SAME BEFORE SURGERY, PT RESTING COMFORTABLE, WILL MONITOR
--- NOTE | 2021-03-17 15:20 | NUR ---
DR GARCIA SPEAKING WITH PATIENTS AT THIS TIME
--- NOTE | 2021-03-17 16:00 | NUR ---
16 tamazight og tube placed, pt tolerated well, placement verified with air bolus and chest x ray ordered, will monitor
--- NOTE | 2021-03-17 18:00 | NUR ---
tube feeds started at this time, pulmocare at 40ml/hr infusing with ease, HOB elevated, tata morataya
[2021-03-18] VITALS (25 sets, daily range): BP systolic 79–159; BP diastolic 50–114
[2021-03-18 05:36] LABS: BASOPHILS 0.3 % (0-2); EOSINOPHILS 0.1 % (0-7); HEMATOCRIT 37.2 % (36.0-48.0); HEMOGLOBIN 12.1 g/dL (12-16); LYMPHOCYTES 7.7 % (15-50); MCH 29.9 pg (26.0-34.0); MCHC 32.6 g/dL (31.0-37.0); MCV 91.7 fL (80.0-100.0); MEAN PLATELET VOLUME 7.8 fL (7.4-10.4); MONOCYTES 6.2 % (2-11); NEUTROPHILS 85.7 % (40-80); RBC 4.06 10x6/uL (4.00-5.40); RDW 13.7 % (11.5-14.5)
[2021-03-18 05:38] LABS: PLATELET COUNT 302 10x3/uL (130-400); WBC 11.7 10x3/uL (4.8-10.8)
[2021-03-18 05:57] LABS: ALBUMIN 1.9 g/dL (3.4-5.0); ALKALINE PHOSPHATASE 77 U/L (30-120); ALT (SGPT) 80 U/L (10-68); CALC OSMOLALITY 287 mosm/kg (275-300); CARBON DIOXIDE 29.1 mmol/L (21.0-32.0); CHLORIDE - SERUM 105 mmol/L (98-107); CREATININE - SERUM 0.5 mg/dL (0.6-1.3); GLUCOSE 225 mg/dL (74-106); POTASSIUM - SERUM 4.2 mmol/L (3.5-5.1); PROTEIN - SERUM 5.4 g/dL (6.4-8.2); SODIUM 139 mmol/L (136-145); UREA NITROGEN 22 mg/dL (7-18); eGFR NON AFRICAN AMERICAN > 90 mL/min (90-120)
--- NOTE | 2021-03-18 07:10 | NUR ---
REPORT RECEIVED FROM OFF GOING NURSE AND PATIENT CARE ASSUMED. PATIENT LAYING ON BACK WITH EYES CLOSED WITH VENT IN PLACE AC 16 TV 400 FIO2 60% PEEP 8.[address] BOTH SECURED. BARR DRAINING CLEAR YELLOW URINE TO GRAVITY. VSS. WILL CONTINUE WITH PLAN OF CARE. SR UP X 2 BED IN LOW POSITION AND CALL LIGHT N REACH.
[2021-03-18 11:12] LABS: BASOPHILS 0.1 % (0-2); EOSINOPHILS 0.4 % (0-7); HEMOGLOBIN 11.5 g/dL (12-16); LYMPHOCYTES 10.1 % (15-50); MCH 30.2 pg (26.0-34.0); MCHC 32.7 g/dL (31.0-37.0); MCV 92.3 fL (80.0-100.0); MEAN PLATELET VOLUME 7.4 fL (7.4-10.4); MONOCYTES 5.3 % (2-11); NEUTROPHILS 84.1 % (40-80); RBC 3.79 10x6/uL (4.00-5.40); RDW 13.9 % (11.5-14.5); WBC 10.3 10x3/uL (4.8-10.8)
[2021-03-18 11:17] LABS: PLATELET COUNT 239 10x3/uL (130-400)
[2021-03-18 11:29] LABS: ALBUMIN 1.7 g/dL (3.4-5.0); ALKALINE PHOSPHATASE 73 U/L (30-120); ALT (SGPT) 65 U/L (10-68); BILIRUBIN - TOTAL 0.38 mg/dL (0.2-1.3); CALCIUM 7.7 mg/dL (8.5-10.1); CARBON DIOXIDE 30.1 mmol/L (21.0-32.0); CHLORIDE - SERUM 105 mmol/L (98-107); CREATININE - SERUM 0.5 mg/dL (0.6-1.3); POTASSIUM - SERUM 4.2 mmol/L (3.5-5.1); PROTEIN - SERUM 4.6 g/dL (6.4-8.2); SODIUM 138 mmol/L (136-145); UREA NITROGEN 20 mg/dL (7-18); eGFR NON AFRICAN AMERICAN > 90 mL/min (90-120)
[2021-03-18 11:31] LABS: CALC OSMOLALITY 281 mosm/kg (275-300); GLUCOSE 147 mg/dL (74-106)
--- NOTE | 2021-03-18 12:13 | NUR ---
DR GARCIA ON UNIT. NEW ORDERS RECEIVED.
--- NOTE | 2021-03-18 12:30 | NUR ---
AT BS. DR GARCIA SPOKE WITH PATIENT AND SPOUSE. VENT SETTINGS CHANGED AC 12 TV 500 O2 50% PEEP 8.0. VSS.
[2021-03-19] VITALS (25 sets, daily range): BP systolic 109–183; BP diastolic 48–101
[2021-03-19 05:22] LABS: BASOPHILS 0.2 % (0-2); EOSINOPHILS 0.1 % (0-7); HEMATOCRIT 33.5 % (36.0-48.0); HEMOGLOBIN 11.1 g/dL (12-16); LYMPHOCYTES 5.2 % (15-50); MCH 30.4 pg (26.0-34.0); MCHC 33.3 g/dL (31.0-37.0); MCV 91.5 fL (80.0-100.0); MEAN PLATELET VOLUME 7.8 fL (7.4-10.4); MONOCYTES 3.5 % (2-11); PLATELET COUNT 214 10x3/uL (130-400); RBC 3.66 10x6/uL (4.00-5.40); RDW 13.6 % (11.5-14.5); WBC 8.9 10x3/uL (4.8-10.8)
[2021-03-19 05:44] LABS: ALBUMIN 1.6 g/dL (3.4-5.0); ALKALINE PHOSPHATASE 77 U/L (30-120); ALT (SGPT) 55 U/L (10-68); BILIRUBIN - TOTAL 0.29 mg/dL (0.2-1.3); CALCIUM 7.6 mg/dL (8.5-10.1); CARBON DIOXIDE 32.3 mmol/L (21.0-32.0); CHLORIDE - SERUM 104 mmol/L (98-107); CREATININE - SERUM 0.6 mg/dL (0.6-1.3); MAGNESIUM - SERUM 1.9 mg/dL (1.8-2.4); POTASSIUM - SERUM 4.3 mmol/L (3.5-5.1); PROTEIN - SERUM 4.8 g/dL (6.4-8.2); SODIUM 137 mmol/L (136-145); UREA NITROGEN 22 mg/dL (7-18); eGFR NON AFRICAN AMERICAN > 90 mL/min (90-120)
[2021-03-19 05:49] LABS: CALC OSMOLALITY 284 mosm/kg (275-300); GLUCOSE 240 mg/dL (74-106)
--- NOTE | 2021-03-19 13:54 | NUR ---
0700 BEDSIDE SHIFT REPORT RECIEVED AND CARE ASSUMED OF PATIENT.. SEE FLOW SHEET FOR SHIFT ASSESMENT FINDINGS.. 0900 MEDS GIVEN.. 1000 DR GARCIA IN TO SEE PATIENT AND VENT CHANGES MADE BY RT AT THIS TIME.. SEE ORDERS.. 1100 DR DAVIDSON IN TO SEE PATIENT.. UPDATE GIVEN.. 1200 IN TO SEE PATIENT.. UPDATE IS GIVEN..
[2021-03-20] VITALS (27 sets, daily range): BP systolic 112–165; BP diastolic 51–99
[2021-03-20 04:44] LABS: EOSINOPHILS 0.1 % (0-7); HEMATOCRIT 35.4 % (36.0-48.0); HEMOGLOBIN 11.4 g/dL (12-16); MCH 29.7 pg (26.0-34.0); MCHC 32.2 g/dL (31.0-37.0); MEAN PLATELET VOLUME 8.8 fL (7.4-10.4); MONOCYTES 5.5 % (2-11); NEUTROPHILS 89.4 % (40-80); RBC 3.85 10x6/uL (4.00-5.40)
[2021-03-20 05:12] LABS: ALBUMIN 1.8 g/dL (3.4-5.0); ALKALINE PHOSPHATASE 78 U/L (30-120); ALT (SGPT) 47 U/L (10-68); BILIRUBIN - TOTAL 0.28 mg/dL (0.2-1.3); CALC OSMOLALITY 284 mosm/kg (275-300); CALCIUM 7.6 mg/dL (8.5-10.1); CARBON DIOXIDE 31.3 mmol/L (21.0-32.0); CHLORIDE - SERUM 104 mmol/L (98-107); GLUCOSE 230 mg/dL (74-106); PLATELET COUNT 262 10x3/uL (130-400); POTASSIUM - SERUM 4.6 mmol/L (3.5-5.1); PROTEIN - SERUM 4.9 g/dL (6.4-8.2); SODIUM 138 mmol/L (136-145); UREA NITROGEN 19 mg/dL (7-18)
[2021-03-20 05:21] LABS: INR 1.09 (0.85-1.17); PROTIME 13.1 SECONDS (11.6-15.0)
[2021-03-20 05:34] LABS: CREATININE - SERUM 0.4 mg/dL (0.6-1.3); eGFR NON AFRICAN AMERICAN > 90 mL/min (90-120)
--- NOTE | 2021-03-20 08:30 | NUR ---
Nutrition follow-up: Pt currently NPO for thoracentesis today Pulmocare @ 40 ml/hr via OGT is TF regimen with pt tolerating per nurse Labs reviewed Last BM charted 03/15/21 Wt: 194# + fluid balance per charted I/O RDN will follow-up on pts progress: 2-3 days
--- NOTE | 2021-03-20 12:10 | NUR ---
PT BACK FROM CT FOR THORACENTESIS. 1200 CC TAKEN OFF DURING PROCEDURE. PT LIONEL WELL.
[2021-03-21] VITALS (25 sets, daily range): BP systolic 123–181; BP diastolic 52–103
[2021-03-21 04:21] LABS: BASOPHILS 0.1 % (0-2); EOSINOPHILS 0.7 % (0-7); HEMATOCRIT 32.2 % (36.0-48.0); HEMOGLOBIN 10.6 g/dL (12-16); LYMPHOCYTES 9.8 % (15-50); MCH 30.2 pg (26.0-34.0); MCHC 32.8 g/dL (31.0-37.0); MCV 92.2 fL (80.0-100.0); MEAN PLATELET VOLUME 7.8 fL (7.4-10.4); MONOCYTES 6.4 % (2-11); RDW 13.8 % (11.5-14.5)
[2021-03-21 04:26] LABS: PLATELET COUNT 208 10x3/uL (130-400); WBC 10.2 10x3/uL (4.8-10.8)
--- NOTE | 2021-03-21 09:43 | NUR ---
0920- PT EXTUBATED TO 5LNC. DR HERNANDEZ HERE ON ROUNDS.
--- NOTE | 2021-03-21 10:34 | NUR ---
HR 130, AFEBRILE. BP 167/89. LOPRESSOR GIVEN. HR DOWN TO 78
--- NOTE | 2021-03-21 12:04 | NUR ---
SPO2 82%. INCREASED HOB. SPO2 INCREASED FOR A SHORT TIME TO 90%. RESP LABORED. RT AT BS. DR HERNANDEZ PAGED AND HE CALLED BACK QUICKLY. RACEMIC UD GIVEN AND WILL PLACE BIPAP ORDERED BY DR HERNANDEZ.
--- NOTE | 2021-03-21 12:50 | NUR ---
DR ATWOOD. HR 150. BP 180/89
--- NOTE | 2021-03-21 14:45 | NUR ---
BP 177/82,HR 95 NSR. HYDRALIZINE GIVEN.
[2021-03-22] VITALS (23 sets, daily range): BP systolic 102–159; BP diastolic 42–118
[2021-03-22 06:23] LABS: BASOPHILS 0.1 % (0-2); EOSINOPHILS 0 % (0-7); HEMATOCRIT 37.4 % (36.0-48.0); LYMPHOCYTES 3.9 % (15-50); MCH 29.6 pg (26.0-34.0); MCV 92.4 fL (80.0-100.0); MONOCYTES 4.1 % (2-11); NEUTROPHILS 91.9 % (40-80); PLATELET COUNT 248 10x3/uL (130-400); RBC 4.05 10x6/uL (4.00-5.40); RDW 13.8 % (11.5-14.5)
[2021-03-22 06:24] LABS: WBC 13.9 10x3/uL (4.8-10.8)
[2021-03-22 06:31] LABS: CALC OSMOLALITY 290 mosm/kg (275-300); CALCIUM 8.3 mg/dL (8.5-10.1); CARBON DIOXIDE 33.9 mmol/L (21.0-32.0); CHLORIDE - SERUM 103 mmol/L (98-107); CREATININE - SERUM 0.4 mg/dL (0.6-1.3); POTASSIUM - SERUM 3.9 mmol/L (3.5-5.1); SODIUM 143 mmol/L (136-145); UREA NITROGEN 20 mg/dL (7-18); eGFR NON AFRICAN AMERICAN > 90 mL/min (90-120)
[2021-03-22 06:32] LABS: GLUCOSE 149 mg/dL (74-106)
--- NOTE | 2021-03-22 07:10 | NUR ---
REPORT RECEIVED FROM OFF GOING NURSE AND PATIENT CARE ASSUMED. PATENT LAYING IN BED ON BACK WITH EYES CLOSED BREATHING EVENLY ON BIPAP. IV LINES CHECKED PATENT. BARR INTACT DRAINING TO GRAVITY CLEAR YELLOW URINE. VSS. WILL CONTINUE WITH PLAN OF CARE. SR UP X 2 BED IN LOW POSITION AND CALL LIGHT IN REACH.
--- NOTE | 2021-03-22 09:45 | NUR ---
DR HERNANDEZ IN ROOM. NEW ORDERS RECIEVED.VSS. WILL CONTINUE TO MONITOR. EVED. PATIENT ON HF NC @ 2 L O2 SAT 94%.
--- NOTE | 2021-03-22 10:41 | NUR ---
SPOKE WITH PATIENTS ON PHONE. GAVE UPDATE AND ANSWERED QUESTIONS TO SATISFACTION. WILL CONTINUE WITH PLAN OF CARE.
--- NOTE | 2021-03-22 20:30 | NUR ---
PT STATED THAT SHE DIDN'T WANT ANYMORE TREATMENT AND THAT SHE WANTED TO . SHE SAID SHE WANTS TO DO HOSPICE. I CALLED PT'S GILMER AND HE IS NOT WANTING HER TO DO HOSPICE AND WANTS HER TO CONTINUE TO DO MEDICAL TREATMENT. I EDUCATED HIM THAT LONG SHE WAS ALERT AND ORIENTED THAT IT WAS HER RIGHT TO MAKE DECISIONS ON HER MEDICAL TREATMENT. DID TALK TO ON THE PHONE AND SHE DECIDED THAT SHE WOULD WAIT UNTIL AM TO TALK TO PROVIDER AND TO MAKE THAT DECISION. SHE STATED MANY TIMES THAT SHE DOES NOT WANT TO DO TREATMENTS. PT WAS EDUCATED WELL ON HER RIGHTS TO MAKE HER OWN DECISIONS ON HER MEDICAL TREATMENT.
--- NOTE | 2021-03-22 20:45 | NUR ---
GILMER, PT'S , CALLED WANTING TO KNOW HER LAST CHEST XRAY RESULTS. HE WAS ADVISED THAT THE XRAY SHOWED THAT THERE WAS CONDENSATION IN HER RIGHT LUNG. HE BECAME UPSET SAYING THAT ALL OTHER XRAYS HAVE BEEN FINE AND THAT NOW "I WAS TELLING HIM THAT CANCER HAD SPREAD" I TOLD HIM AGAIN THAT THE XAY SHOWED CONDENSATION AND THAT I DID NOT SAY ANYTHING ABOUT CANCER AND THAT HE WOULD NEED TO DISCUSS THE XRAY FINDINGS WITH THE PROVIDER I AM NOT SURE WHAT THE IMPRESSION OF THE XRAY SHOWING CONDENSATION INDICATED AND RE EDUACATED TO HIM THAT HE WOULD NEED TO DISCUSS THE XRAY FINDING WITH THE PROVIDER. LOW CANALES WAS NEXT TO ME DURING THIS PHONE CONVERSATION
[2021-03-23] VITALS (23 sets, daily range): BP systolic 105–179; BP diastolic 53–92
--- NOTE | 2021-03-23 02:33 | NUR ---
I have reviewed this patient and I concur with the Shift Assessment completed by the Licensed Practical Nurse today this shift.
--- NOTE | 2021-03-23 12:15 | NUR ---
Nutrition reassessment: Pt discussed during IDT team rounds. Pt extubated 03/22/21 NPO after failing swallow evaluation by speech pathologist. Labs reviewed No BM recorded this week; pt on colace Ht: 5'5" Wt: 198# IBW: 125# +/-10% Estimated nutritional needs based on AdjBW of 65 [id number] kcal (25-30 kcal/kg AdjBW of 65 kg) 65-78 gm protein (1.0-1.2 gm/kg AdjBW) 9564-4221 ml fluid (or per MD) Nutrition diagnosis: Inadequate oral intake R/T unsafe swallow at this time AEB strict NPO order per speech path. Nutrition goals: - PEG tube will be placed within 24 hours if pt continues with unsafe swallow - Meet est fluid needs - Stable dry wt Interventions: Repeat swallow evaluation this afternoon RDN will follow-up on progress toward nutrition goals within 1-2 days.
--- NOTE | 2021-03-23 22:49 | NUR ---
CARDIOLOGY PAGED REGARDING TACH
--- NOTE | 2021-03-23 23:59 | NUR ---
CARDIZEM DRIP STARTED AT 2350
[2021-03-24] VITALS (24 sets, daily range): BP systolic 98–171; BP diastolic 41–77
--- NOTE | 2021-03-24 03:24 | NUR ---
I have reviewed this patient and I concur with the Shift Assessment completed by the Licensed Practical Nurse today this shift.
[2021-03-24 05:38] LABS: CALCIUM 8.3 mg/dL (8.5-10.1); CARBON DIOXIDE 32.7 mmol/L (21.0-32.0); CHLORIDE - SERUM 105 mmol/L (98-107); CREATININE - SERUM 0.5 mg/dL (0.6-1.3); POTASSIUM - SERUM 3.6 mmol/L (3.5-5.1); SODIUM 145 mmol/L (136-145); eGFR NON AFRICAN AMERICAN > 90 mL/min (90-120)
[2021-03-24 05:48] LABS: BASOPHILS 0.1 % (0-2); EOSINOPHILS 0 % (0-7); HEMATOCRIT 37.2 % (36.0-48.0); LYMPHOCYTES 2.5 % (15-50); MCH 29.7 pg (26.0-34.0); MCHC 32.2 g/dL (31.0-37.0); MCV 92.3 fL (80.0-100.0); MONOCYTES 2.8 % (2-11); NEUTROPHILS 94.6 % (40-80); PLATELET COUNT 368 10x3/uL (130-400); RBC 4.03 10x6/uL (4.00-5.40); RDW 14.3 % (11.5-14.5); WBC 20.7 10x3/uL (4.8-10.8)
[2021-03-24 05:53] LABS: CALC OSMOLALITY 300 mosm/kg (275-300); GLUCOSE 197 mg/dL (74-106); UREA NITROGEN 32 mg/dL (7-18)
--- NOTE | 2021-03-24 12:05 | NUR ---
Nutrition Follow-up: Failed swallow study; ST recs PEG vs NGT. Noted pt will need reintubation & bronch per pulm. Discussed in IDT rounds. Diet: NPO No new wt; last wt: 198.4# (03/21) Labs noted: Glu 197, Ca 8.3 Meds noted: Solumedrol, Humulin, Protonix, NS @ 75, electrolyte protocol -When medically feasible, rec restart TF via NGT vs PEG. Rec Pulmocare @ goal rate of 40 mL/hr; provides 1440 kcal (74-88% est needs) & 60 g protein (77-92% est needs) daily. -Need new wt. -RD follow-up: 03/27
--- NOTE | 2021-03-24 14:13 | NUR ---
DR. HERNANDEZ ORDERS TO SWITCH SCHEDULE OF SOLU-MEDROL.
--- NOTE | 2021-03-24 19:00 | NUR ---
RECEIVED BEDSIDE REPORT. ROUNDING COMPLETE. PATIENT RESTING COMFORTABLY IN BED. PATIENT REMAINS ON BIPAP. NO S/S OF DISTRESS. NO C/O PAIN. DENIES NEEDS AT THIS TIME. CALL LIGHT WITHIN REACH. WILL CPOC.
--- NOTE | 2021-03-24 21:30 | NUR ---
PATIENT CALLED AND WAS UPDATED. HE WILL BE HERE IN AM.
--- NOTE | 2021-03-24 21:35 | NUR ---
ATTEMPTED TO GIVE PATIENT HER HS MEDS. PATIENT REFUSES TO TAKE MEDICATION.
[2021-03-25] VITALS (82 sets, daily range): BP systolic 61–132; BP diastolic 34–559
--- NOTE | 2021-03-25 03:46 | NUR ---
CALLED TO UPDATE HIM ON PATIENT STATUS. NO ANSWER. LEFT MESSAGE TO RETURN CALL TO UNIT
[2021-03-25 04:21] LABS: BASOPHILS 0.4 % (0-2); EOSINOPHILS 0 % (0-7); HEMATOCRIT 34.5 % (36.0-48.0); LYMPHOCYTES 1.1 % (15-50); MCH 30.2 pg (26.0-34.0); MCHC 31.8 g/dL (31.0-37.0); MEAN PLATELET VOLUME 7.7 fL (7.4-10.4); MONOCYTES 3.2 % (2-11); NEUTROPHILS 95.3 % (40-80); RBC 3.63 10x6/uL (4.00-5.40); RDW 14.6 % (11.5-14.5); WBC 19.3 10x3/uL (4.8-10.8)
[2021-03-25 04:22] LABS: PLATELET COUNT 289 10x3/uL (130-400)
[2021-03-25 04:27] LABS: ANION GAP 6.7 mmol/L (8-16); CALCIUM 7.7 mg/dL (8.5-10.1); CARBON DIOXIDE 34.4 mmol/L (21.0-32.0); POTASSIUM - SERUM 4.1 mmol/L (3.5-5.1)
--- NOTE | 2021-03-25 06:02 | NUR ---
SECOND ATTEMPT TO CONTACT PATIENT . TO UPDATE HIM ON PATIENT CONDITION. NO ANSWER. LEFT MESSAGE.
--- NOTE | 2021-03-25 06:07 | NUR ---
PATIENT RETURNED CALL AND WAS UPDATED.
--- NOTE | 2021-03-25 13:21 | NUR ---
WATERY STOOLS X 2 THIS DAY. DIGITAL INSPECTION IMPACTION REMOVED. PT CLEANED AND LINENS CHANGED.
[2021-03-26] VITALS (27 sets, daily range): BP systolic 115–144; BP diastolic 47–71
--- NOTE | 2021-03-26 01:30 | NUR ---
PATIENT WEANED OFF LEVOPHED. BP STABLE. BP 138/54 MAP 83
[2021-03-26 04:18] LABS: BASOPHILS 0 % (0-2); EOSINOPHILS 0 % (0-7); HEMATOCRIT 32.1 % (36.0-48.0); HEMOGLOBIN 10.4 g/dL (12-16); LYMPHOCYTES 2.8 % (15-50); MCH 29.8 pg (26.0-34.0); MCHC 32.4 g/dL (31.0-37.0); MEAN PLATELET VOLUME 8.4 fL (7.4-10.4); MONOCYTES 2.2 % (2-11); RBC 3.49 10x6/uL (4.00-5.40); RDW 14.2 % (11.5-14.5)
[2021-03-26 04:21] LABS: PLATELET COUNT 191 10x3/uL (130-400); WBC 11.9 10x3/uL (4.8-10.8)
[2021-03-26 04:29] LABS: CALCIUM 7.7 mg/dL (8.5-10.1); CARBON DIOXIDE 28.2 mmol/L (21.0-32.0)
[2021-03-26 04:34] LABS: POTASSIUM - SERUM 3.2 mmol/L (3.5-5.1)
[2021-03-27] VITALS (24 sets, daily range): BP systolic 118–160; BP diastolic 45–75
[2021-03-27 04:51] LABS: BASOPHILS 0 % (0-2); EOSINOPHILS 0 % (0-7); HEMATOCRIT 29.4 % (36.0-48.0); HEMOGLOBIN 9.7 g/dL (12-16); LYMPHOCYTES 2.6 % (15-50); MCH 30.5 pg (26.0-34.0); MCHC 33.1 g/dL (31.0-37.0); MCV 92.1 fL (80.0-100.0); MEAN PLATELET VOLUME 8.6 fL (7.4-10.4); MONOCYTES 1.7 % (2-11); NEUTROPHILS 95.7 % (40-80); PLATELET COUNT 162 10x3/uL (130-400); RBC 3.19 10x6/uL (4.00-5.40); RDW 14.4 % (11.5-14.5)
[2021-03-27 05:25] LABS: ANION GAP 9.2 mmol/L (8-16); CALCIUM 7.6 mg/dL (8.5-10.1); CARBON DIOXIDE 31.1 mmol/L (21.0-32.0); CREATININE - SERUM 0.8 mg/dL (0.6-1.3); POTASSIUM - SERUM 3.3 mmol/L (3.5-5.1)
--- NOTE | 2021-03-27 10:00 | NUR ---
DR. GARCIA ROUNDS, ORDERS RECEIVED.
[2021-03-27 10:08] LABS: FUNGUS STAIN Final report (())
--- NOTE | 2021-03-27 11:14 | NUR ---
MR. CARNEY CALLED AND IS UPDATED.
--- NOTE | 2021-03-27 12:31 | NUR ---
Nutrition Reassessment/Follow-up: Intubated 03/25. Jevity 1.2 started over the weekend but off this AM; nursing reports that pt was up to goal of 40 mL/hr but that they ran out of formula. Discussed in IDT rounds; TF to be changed to Pulmocare @ 40 mL/hr. Diet: Jevity 1.2 - goal rate of 40 mL/hr + H2O flushes 50 mL q 4 hrs Wt: 187# (03/27)IBW: 125# Labs noted: Na 149, K+ 3.3, BUN 46, Cre 0.8, GFR 72, Glu 381, Ca 7.6 Meds noted: Protonix, Nystatin, Solumedrol, Florajen, Colace, Humulin, NS @ 30, electrolyte protocol Est needs: 1708 kcal/day (PSU 2009) 55-70 g protein/day (1-1.2 g/kg IBW) 1708 mL fluid/day (1 mL/kcal) or per MD Nutrition Diagnosis: -Altered nutrition-related lab values R/T DM AEB Glu 381. Nutrition Goals: -Tolerate TF @ goal rate. -Stable dry wt. -Glu at or near normal. Nutrition Intervention: -Change TF to Pulmocare @ goal rate of 40 mL/hr; provides 1440 kcal (84% est needs) & 60 g protein (86-109% est needs) daily. -Monitor wt. -RD will follow up within 2-3 days.
--- NOTE | 2021-03-27 18:23 | NUR ---
DR. GARCIA NOTIFIED PT NOW IN AFIB RATE 110. NO NEW ORDERS, WILL CONTROL W/ PRN METOPROLOL.
--- NOTE | 2021-03-27 18:29 | NUR ---
A FIB ALREADY BROKE, LASTED APPROX 5 MINUTES. NSR 70 HR NOW.
[2021-03-28] VITALS (26 sets, daily range): BP systolic 107–159; BP diastolic 44–84
--- NOTE | 2021-03-28 06:55 | NUR ---
HELD LOVENOX YESTERDAY BECAUSE THOUGHT WE WERE DOING CT GUIDED THORACENTESIS, BUT PER MOLD HOISTER, WE ARE DOING IT TODAY. WILL HOLD LOVENOX THIS AM.
--- NOTE | 2021-03-28 10:33 | NUR ---
CPAP TRIAL STOPPED PER DR. GARCIA ORDERS. VENT CHANGED. 15/450/35%/5
--- NOTE | 2021-03-28 10:35 | NUR ---
DR. JOSE CORADO. ORDERS RECDEIVED.
--- NOTE | 2021-03-28 13:09 | NUR ---
TRANSPORTED TO IR WITH IR RNS X 2 AND RT JONNA.
--- NOTE | 2021-03-28 14:22 | NUR ---
P/S TRIAL STARTED PER DR. GARCIA REQUEST AT 1655. WILL RUN TRIAL FOR 1 HR FOLLOWED BY ABG/ NIF/VC. UPON SUCESSFUL SBT PLAN TO EXTUBATE TODAY.
--- NOTE | 2021-03-28 15:19 | NUR ---
ON CPAP TRIAL. ABGS BEING OBTAINED NOW PER RT. HOPEFULLY EXTUBATING S/P THORACENTESIS.
--- NOTE | 2021-03-28 15:47 | NUR ---
EXTUBATING. LEFT MESSAGE W/ .
--- NOTE | 2021-03-28 19:07 | NUR ---
RECEIVED BEDSIDE REPORT. ROUNDING COMPLETE. PATIENT IS AAO X 4, RESTING COMFORTABLY IN BED.RESPIRATIONS ARE EVEN AND UNLABORED AT THIS TIME. NO S/S OF DISTRESS. NO C/O PAIN. NEEDS MET. CALL LIGHT WITHIN REACH. WILL CPOC.
[2021-03-29] VITALS (22 sets, daily range): BP systolic 122–159; BP diastolic 47–83
[2021-03-29 06:55] LABS: BASOPHILS 0.1 % (0-2); EOSINOPHILS 0 % (0-7); HEMATOCRIT 34.1 % (36.0-48.0); HEMOGLOBIN 11.1 g/dL (12-16); LYMPHOCYTES 3.9 % (15-50); MCH 29.9 pg (26.0-34.0); MCHC 32.4 g/dL (31.0-37.0); MCV 92.1 fL (80.0-100.0); MEAN PLATELET VOLUME 8.1 fL (7.4-10.4); MONOCYTES 2.4 % (2-11); NEUTROPHILS 93.6 % (40-80); RBC 3.71 10x6/uL (4.00-5.40); RDW 14.7 % (11.5-14.5); WBC 12.7 10x3/uL (4.8-10.8)
[2021-03-29 06:59] LABS: PLATELET COUNT 200 10x3/uL (130-400)
[2021-03-29 07:12] LABS: ALBUMIN 1.7 g/dL (3.4-5.0); ALKALINE PHOSPHATASE 85 U/L (30-120); ALT (SGPT) 28 U/L (10-68); BILIRUBIN - TOTAL 0.49 mg/dL (0.2-1.3); CALC OSMOLALITY 314 mosm/kg (275-300); CARBON DIOXIDE 31.2 mmol/L (21.0-32.0); CHLORIDE - SERUM 113 mmol/L (98-107); CREATININE - SERUM 0.6 mg/dL (0.6-1.3); POTASSIUM - SERUM 4.1 mmol/L (3.5-5.1); SODIUM 150 mmol/L (136-145); UREA NITROGEN 40 mg/dL (7-18); eGFR NON AFRICAN AMERICAN > 90 mL/min (90-120)
[2021-03-29 07:13] LABS: GLUCOSE 217 mg/dL (74-106)
--- NOTE | 2021-03-29 09:15 | NUR ---
IN MUCH BETTER SPIRITS TODAY. REPORTS SHE IS READY TO GET WELL AND WANTS TO GET STRONG. DR. HODGE ROUNDS, NO NEW ORDERS. COMPLIANT WITH AND GIVES GOOD EFFORT WITH IS.
--- NOTE | 2021-03-29 10:16 | NUR ---
MR. CARNEY AND FRIEND IN ROOM AND ARE UPDATED ON PLAN OF CARE. DR. JOSE CORADO. NO NEW ORDERS.
--- NOTE | 2021-03-29 12:41 | NUR ---
Nutrition follow-up: Pt extubated Diet advanced to regular puree with thin liquids after swallow evaluation Labs reviewed Wt: 187# Will provide food choices with selective menus and honor food preferences within diet modifications. RDN will follow-up on continued progress toward nutrition goals in 2-3 days.
--- NOTE | 2021-03-29 12:49 | NUR ---
HAVE SPOKEN TO CT, LAB, MICRO, CYTO AND NO ONE CAN FIND THE PLEURAL FLUID FOR LABS ORDERED FROM THORACENTESIS, DESPITE THAT PRESCHOOL TEACHER AIDE REPORTS TAKING IT TO LAB. DR. GARCIA MADE AWARE.
--- NOTE | 2021-03-29 13:09 | NUR ---
ATE 50% OF LUNCH. TOLERATED WELL. ABLE TO PLACE ON RA.
--- NOTE | 2021-03-29 13:59 | NUR ---
FULL CHG BED BATH GIVEN. RECTAL TUBE REMOVED.
--- NOTE | 2021-03-29 15:28 | NUR ---
WENT BACK TO LAB TO SEE IF FOUND PLEURAL FLUID. STILL HAS NOT BEEN FOUND. INSOLE BUFFER SAID SHE WOULD TRY ANOTHER WALK THROUGH TO FIND IT.
[2021-03-29 17:09] LABS: AEROBE ID Final report (())
--- NOTE | 2021-03-29 19:18 | NUR ---
RECEIVED BEDSIDE REPORT. ROUNDING COMPLETE. PATIENT IS ALERT AND ORIENTED, RESTING COMFORTABLY IN BED. RESPIRATIONS ARE EVEN AND UNLABORED. NO S/S OF DISTRESS. NO C/O PAIN. CALL LIGHT WITHIN REACH. WILL CPOC.
[2021-03-30] VITALS (12 sets, daily range): BP systolic 114–162; BP diastolic 51–76
--- NOTE | 2021-03-30 14:31 | NUR ---
REHAB PRESCREEN RECEIVED. I HAVE EXPLAINED TO JIM KIM RN CM DIRECTOR THAT IT STANDS RIGHT NOW, THE REHAB IS FULL. WE DON'T CURRENTLY FORSEE HAVING ANOTHER OPEN BED UNTIL SATURDAY OF NEXT WEEK. THIS CAN ALWAYS CHANGE, SO WE WILL PROCEED WITH THE CHART SCREEN AT THIS TIME. SHE STATED SHE WOULD LET ME KNOW IF THE PATIENT WERE TO PLAN DISCHARGE SOMEWHERE ELSE. THANK YOU FOR THE REFERRAL. LENY LAL RN CLINICAL LIAISON, INPATIENT REHAB.
--- NOTE | 2021-03-30 15:15 | NUR ---
TRANSFERED WITH MAX ASSIST X2 FROM CHAIR TO BED. IVF INFUSING AT PRESCRIBED RATE. ORIENTED TO ROOM AND CALL LIGHT WITH FAMILY PRESENT.
--- NOTE | 2021-03-30 17:57 | MORECARE ---
CASE MANAGEMENT DISCHARGE SUMMARY PATIENT: SOPHIA CARNEY UNIT: [id number] ADM DATE: 03/10/21 AGE: 85 : 37 SEX: F ROOM/BED: [facility] AUTHOR: GIGI,DOC PHYSICIAN: REFERRING PHYSICIAN: MEGAN CORONADO MD DATE OF SERVICE: 03/30/21 Case Management Discharge Planning Summary DCP REVIEW SUMMARY ANTICIPATED D/C DATE: EXPECTED LOS : CASE STATUS: DCP Initiated INITIAL REVIEW: 03/10/2021 INITIAL REVIEWER: Kezia Porter FINAL DISCHARGE DISPOSITION: : FINAL REVIEWER: FINAL REVIEW DATE: DCP Focus Questions & Answers DCP Screen QUESTION: ANSWER High Risk Factors: : Hosp related to CHF, COPD, DM, End Stage Ds, CVA, CA DCP Evaluation QUESTION: ANSWER Patient's ability to cope with chronic illness : d. No chronic illness Would patient like to participate in any Care Coordination programs (if applicable): : Not applicable Mental health screen: : No mental health history DCP Re-evaluation QUESTION: ANSWER Would patient like to participate in any Care Coordination programs (if applicable): : Not applicable PATIENT: SOPHIA CARNEY ENCOUNTER: [id number] MEDICAL RECORD#: [id number] ADMISSION DATE: 03/10/2021 DISCHARGE DATE: ATTENDING MD: MEGAN MCCORMICK : AGE: 85 MARITAL STATUS: M DC PLAN ID: [id number] FACILITY: [facility] PRINTED ON: 03/30/21 17:57 CT All edits/amendments must be made on the electronic document DICTATION DATE: 03/30/211756 RESIDENTIAL CASE MANAGER: DM 03/30/211756 RPT#: [id number] DC DATE: STATUS: ADM IN [facility] [address] [place] [address] END OF REPORT
--- NOTE | 2021-03-30 18:20 | MORECARE ---
CASE MANAGEMENT DISCHARGE SUMMARY PATIENT: SOPHIA ROA UNIT: [id number] ADM DATE: 03/10/21 AGE: 85 : 37 SEX: F ROOM/BED: D.2235 AUTHOR: IGGI,DOC PHYSICIAN: REFERRING PHYSICIAN: MEGAN CORONADO MD DATE OF SERVICE: 03/30/21 Case Management Discharge Planning Summary COMMENTS ENTERED DATE: 03/30/21 17:58 CT COMMENT TYPE: Discharge Planning REVIEWER: Kezia Porter After obtaining verbal consent, CM met with patient to discuss discharge planning / needs. CM discussed availability of home health, rehab services, and medical equipment. Patient states she would like to go to rehab upon hospital discharge. CM explained and patient signed NICA for [facility] as her first choice and SNF at [facility] is her second choice. Patient lives at home with her who is legally blind and legally deaf. States prior to hospitalization she was independent and took care of her . States she has home CPAP, Home Oxygen Concentrator, and Portable Oxygen. States she got her DME from [facility]. States prior to hospitalization she only used oxygen when she walked fast and that she just made sure to walk slow so she didn't have to use it. Denies any other discharge planning needs at this time. CM will continue to follow and assist with discharge planning needs. DCP REVIEW SUMMARY ANTICIPATED D/C DATE: EXPECTED LOS : CASE STATUS: DCP Initiated INITIAL REVIEW: 03/10/2021 INITIAL REVIEWER: Kezia Porter FINAL DISCHARGE DISPOSITION: : FINAL REVIEWER: FINAL REVIEW DATE: DCP Focus Questions & Answers DCP Screen QUESTION: ANSWER High Risk Factors: : Hosp related to CHF, COPD, DM, End Stage Ds, CVA, CA DCP Evaluation QUESTION: ANSWER Patient and/or caregiver agree upon recommended discharge plan? : Yes Family / Caregiver's ability to cope with chronic illness: : a. Adequate (ability to meet patient's medical needs, ensures patient attends medical appts.) Patient's current cognitive status: : *Oriented to person, place, situation, time and present Patient gives permission to discuss discharge plans with: (name, relationship and number) : Anjel Roa, spouse, Patient's ability to cope with chronic illness : a. Adequate (0-3 ED visits in 6 mos., adequate financial resources, attends scheduled appts.) Alternate discharge plan (if recommended plan not agreed upon by patient and/or caregiver): : 1st choice is [facility] 2nd choice is SNF at [facility] Does the patient have the ability to pay for or attain post discharge needs / services? : Yes Functional screen assessment: : New onset of change in functional mobility Physical Status: : Independent with ADL's Equipment needed for post hospitalization: : None Is there a likelihood that the patient will require additional services to return to the preadmission environment? : Yes Results of this evaluation have been discussed with: : Patient Patient with capacity for self-care or can be cared for in same environment as prior to hospitalization? : No Baseline cognitive status: : *Oriented to person, place, situation, time and present Physical environment modification needed / anticipated for discharge: : No Preadmission facility can/cannot provide post hospital level of care needs: : Cannot - at higher level of care than preadmission Medication Management: : Patient states can afford medications Planned post hospital services available for patient? : Yes Pharmacy name(s): : [facility] on [address] Planned post hospital services covered by insurance plan? : Yes Does Patient have transportation to get home and to follow-up medical appointments when discharged from the hospital? : Yes Would patient like to participate in any Care Coordination programs (if applicable): : Not applicable Does the patient have electricity at home? : Yes Does the patient have running water in their house? : Yes Equipment in use: : Home Oxygen with Nasal Cannula Equipment in use: : Glucometer Equipment in use: : CPAP Other Equipment comments: : has portable O2 Mental health screen: : No mental health history Psychosocial status: : Independent adult (65+) Abuse/Neglect: : None Resources / Services in place: : None DCP Re-evaluation QUESTION: ANSWER Would patient like to participate in any Care Coordination programs (if applicable): : Not applicable PATIENT: SOPHIA ROA ENCOUNTER: [id number] MEDICAL RECORD#: [id number] ADMISSION DATE: 03/10/2021 DISCHARGE DATE: ATTENDING MD: MEGAN MCCORMICK : AGE: 85 MARITAL STATUS: M DC PLAN ID: [id number] FACILITY: [facility] PRINTED ON: 03/30/21 18:20 CT All edits/amendments must be made on the electronic document DICTATION DATE: 03/30/211819 MANAGER PORTABLE: ALF 03/30/211819 RPT#: [id number] DC DATE: STATUS: ADM IN [facility] [address] [place] [address] END OF REPORT
--- NOTE | 2021-03-30 19:30 | NUR ---
PT IN BED, AAO X 3, RESP EVEN AND UNLABORED, NO DISTRESS NOTED, CL IN REACH, SR UP X 2.
[2021-03-31 04:00] VITALS: BP 139/54
--- NOTE | 2021-03-31 04:55 | NUR ---
I have reviewed this patient and I concur with the Shift Assessment completed by the Licensed Practical Nurse today this shift.
[2021-03-31 07:01] LABS: BASOPHILS 0.1 % (0-2); EOSINOPHILS 0.2 % (0-7); HEMOGLOBIN 11.9 g/dL (12-16); LYMPHOCYTES 8.1 % (15-50); MCH 30.3 pg (26.0-34.0); MCV 91.8 fL (80.0-100.0); MEAN PLATELET VOLUME 9.3 fL (7.4-10.4); NEUTROPHILS 86.6 % (40-80); PLATELET COUNT 188 10x3/uL (130-400); RBC 3.92 10x6/uL (4.00-5.40); RDW 14.5 % (11.5-14.5); WBC 10.4 10x3/uL (4.8-10.8)
[2021-03-31 07:21] LABS: ALBUMIN 1.6 g/dL (3.4-5.0); ALKALINE PHOSPHATASE 76 U/L (30-120); ALT (SGPT) 27 U/L (10-68); BILIRUBIN - TOTAL 0.43 mg/dL (0.2-1.3); CALCIUM 7.7 mg/dL (8.5-10.1); CARBON DIOXIDE 31.3 mmol/L (21.0-32.0); CHLORIDE - SERUM 110 mmol/L (98-107); CREATININE - SERUM 0.5 mg/dL (0.6-1.3); POTASSIUM - SERUM 3.7 mmol/L (3.5-5.1); PROTEIN - SERUM 4.5 g/dL (6.4-8.2); SODIUM 144 mmol/L (136-145); eGFR NON AFRICAN AMERICAN > 90 mL/min (90-120)
[2021-03-31 07:22] LABS: CALC OSMOLALITY 293 mosm/kg (275-300); GLUCOSE 112 mg/dL (74-106); UREA NITROGEN 29 mg/dL (7-18)
[2021-03-31 09:51] VITALS: BP 159/80
[2021-03-31 12:51] VITALS: BP 142/78
--- NOTE | 2021-03-31 13:03 | NUR ---
Nutrition follow-up: Pt just out of ICU. Diet: regular puree with thin liquids Ensure all meals Pt is sleeping at this time; no intake recorded. labs reviewed Wt: 184# Waiting to discharge to rehab Will continue to provide food choices and encourage increased po intake. RDN will follow-up on progress toward nutrition goals in 3-4 days.
[2021-03-31 17:03] VITALS: BP 128/67
--- NOTE | 2021-03-31 17:22 | NUR ---
OT NOTE: PT STATED THAT IS STRESSFUL WHEN VISITING. PT STATED "HE WEARS ME OUT." PT ASKED IF SHE COULD PARTICIPATE AND SHE REPLIES" I CAN GIVE IT THE COLLEGE TRY." PT REQUIRED TOTAL A FOR LE MANAGEMENT. PT REQUIRED MAX A FOR SUPINE TO SIT. PT COMPLETED SITTING BALANCE WITH MIN A. PT COMPLETED STATIC SITTING WITH SBA. PT COMPLETED BUE AROM EXS TOLERATED. PT REQUIRED TOTAL A FOR SIT TO SUPINE. 210-241 [address] [place]
[2021-03-31 20:45] VITALS: BP 135/50
[2021-04-01 00:40] VITALS: BP 120/47
--- NOTE | 2021-04-01 04:06 | NUR ---
I have reviewed this patient and I concur with the Shift Assessment completed by the Licensed Practical Nurse today this shift.
[2021-04-01 05:15] VITALS: BP 120/54
[2021-04-01 06:48] LABS: BASOPHILS 0.1 % (0-2); EOSINOPHILS 0.3 % (0-7); HEMATOCRIT 33.7 % (36.0-48.0); HEMOGLOBIN 11.1 g/dL (12-16); LYMPHOCYTES 9.5 % (15-50); MCH 30.2 pg (26.0-34.0); MCV 91.5 fL (80.0-100.0); MEAN PLATELET VOLUME 9.3 fL (7.4-10.4); MONOCYTES 4.6 % (2-11); NEUTROPHILS 85.5 % (40-80); PLATELET COUNT 205 10x3/uL (130-400); RBC 3.68 10x6/uL (4.00-5.40); RDW 14.1 % (11.5-14.5)
[2021-04-01 06:52] LABS: WBC 6.3 10x3/uL (4.8-10.8)
[2021-04-01 07:25] LABS: ALBUMIN 1.6 g/dL (3.4-5.0); ALKALINE PHOSPHATASE 66 U/L (30-120); ALT (SGPT) 22 U/L (10-68); BILIRUBIN - TOTAL 0.42 mg/dL (0.2-1.3); CALC OSMOLALITY 294 mosm/kg (275-300); CALCIUM 7.5 mg/dL (8.5-10.1); CARBON DIOXIDE 31.3 mmol/L (21.0-32.0); CHLORIDE - SERUM 109 mmol/L (98-107); CREATININE - SERUM 0.4 mg/dL (0.6-1.3); GLUCOSE 128 mg/dL (74-106); PROTEIN - SERUM 4.3 g/dL (6.4-8.2); SODIUM 144 mmol/L (136-145); UREA NITROGEN 28 mg/dL (7-18); eGFR NON AFRICAN AMERICAN > 90 mL/min (90-120)
--- NOTE | 2021-04-01 08:00 | NUR ---
ALERT AND ORIENTED X4. O2 3L N/C PUSLSE OX 94%. LUNGS DIMINISHED TO BLQ ANTERIOR. PT. ASKED IF TODAY WAS THE DAY SHE WAS GOING TO . STATED SHE WAS TIRED AND WAS READY. INSTRUCTEDE HER THAT NO ONE KNOWS THE ANSWER. INFORMED HER OF CURRENT VITALS AND STABILITY.
[2021-04-01 09:14] VITALS: BP 162/64
--- NOTE | 2021-04-01 13:00 | NUR ---
CALLED TO PT. ROOM WITH DYSPNEA NOTED WITH PULSE OX 86%. O2 INCREASED TO 15L WITH CONTINUED 02 SAT 88%. RESP THERAPY NOTIFIED WITH BREATHING TX GIVEN.PT STATES IS WANTING HOSPICE CONSULT. DR. GARCIA AND YAIMA TAFOYA APN NOTIFIED OF PT WISHES WITH BAILEY LANDRY NOTED.
[2021-04-01 13:37] VITALS: BP 124/42
--- NOTE | 2021-04-01 14:01 | NUR ---
CALLED TO PT ROOM PT SPO2 86% ON HFNC@15LPM...TX GIVEN, DR GARCIA NOTIFIED OF PT CHANGE OF STATUS. DR GARCIA AT BEDSIDE PT IS REQUESTING HOSPICE AND FOR TX TO BE STOPPED, PT REFUSES 100% NRB AND BIPAP. FAMILY AT BEDSIDE, PT REMAINS ON HFNC@ 15LPM.
[2021-04-01 17:21] VITALS: BP 181/85
--- NOTE | 2021-04-01 18:36 | NUR ---
HOSPICE HERE FOR CONSULT
--- NOTE | 2021-04-01 19:04 | NUR ---
PATIENT IS REFUSING TX'S. WANTS TO BE ON HOSPICE.
--- NOTE | 2021-04-02 02:28 | NUR ---
I have reviewed this patient and I concur with the Shift Assessment completed by the Licensed Practical Nurse today this shift.
[2021-04-02 05:48] LABS: ALBUMIN 1.9 g/dL (3.4-5.0); ALKALINE PHOSPHATASE 67 U/L (30-120); ALT (SGPT) 25 U/L (10-68); BILIRUBIN - TOTAL 0.46 mg/dL (0.2-1.3); CALC OSMOLALITY 294 mosm/kg (275-300); CALCIUM 7.7 mg/dL (8.5-10.1); CARBON DIOXIDE 33.1 mmol/L (21.0-32.0); CHLORIDE - SERUM 110 mmol/L (98-107); CREATININE - SERUM 0.4 mg/dL (0.6-1.3); GLUCOSE 141 mg/dL (74-106); PROTEIN - SERUM 4.5 g/dL (6.4-8.2); SODIUM 145 mmol/L (136-145); UREA NITROGEN 23 mg/dL (7-18); eGFR NON AFRICAN AMERICAN > 90 mL/min (90-120)
[2021-04-02 06:07] LABS: BASOPHILS 0 % (0-2); EOSINOPHILS 0.4 % (0-7); HEMATOCRIT 36.6 % (36.0-48.0); HEMOGLOBIN 11.2 g/dL (12-16); IMMATURE GRANULOCYTES 0.3 % (0-5); LYMPHOCYTE ABS# 1.17 10x3/uL (1.18-3.74); LYMPHOCYTES 13.1 % (15-50); MCH 28.9 pg (26.0-34.0); MCHC 30.6 g/dL (31.0-37.0); MCV 94.6 fL (80.0-100.0); MEAN PLATELET VOLUME 11.1 fL (7.4-10.4); MONOCYTES 4.7 % (2-11); NEUTROPHILS 81.5 % (40-80); PLATELET COUNT 258 10x3/uL (130-400); RBC 3.87 10x6/uL (4.00-5.40); RDW 14.1 % (11.5-14.5)
--- NOTE | 2021-04-02 08:10 | NUR ---
ALERT AND ORIENTED AND ABLE TO VOICE NEEDS WITH SOFT SPEECH. PATIENT COMPLAINS OF FEELING ANXIOUS WITH ATIVAN EFFECTIVE FOR ANXIETY. O2 10L N/C. RALES/ RHONCHI NOTED TO BLQ ANTERIOR. NO DISTRESS NOTED AT THIS TIME. ENCOURAGED PT AND TO USE CALL LIGHT FOR ASSIST.
[2021-04-02 09:05] VITALS: BP 154/60
--- NOTE | 2021-04-02 10:00 | NUR ---
RESP EVEN AND UNLABORED RESTING WITH EYES CLOSED.
--- NOTE | 2021-04-02 12:59 | NUR ---
PT REFUSED TX
--- NOTE | 2021-04-02 14:30 | NUR ---
[facility] HERE FOR REFERRAL AND POSSIBLE ADMISSION. ATIVAN GIVEN FOR ANXIETY AND EFFECTIVE.
--- NOTE | 2021-04-02 16:38 | MORECARE ---
CASE MANAGEMENT DISCHARGE SUMMARY PATIENT: SOPHIA ROA UNIT: [id number] ADM DATE: 03/10/21 AGE: 85 : 37 SEX: F ROOM/BED: D.2235 AUTHOR: GIGI,DOC PHYSICIAN: REFERRING PHYSICIAN: MEGAN CORONADO MD DATE OF SERVICE: 04/02/21 Case Management Discharge Planning Summary COMMENTS ENTERED DATE: 04/02/21 16:32 CT COMMENT TYPE: Discharge Planning REVIEWER: Kavon El [facility]. Received phone call from [facility]. Patient's family would like the patient to be evaluated and discharged to [facility] inpatient facility. NICA signed and placed in chart. Clinical documents faxed, printed, and placed at the nurse's station. CM will continue to follow and will assist as needed with dc plans/needs. Appended by Kavon El on 04/02/2021 16:34 CDT: Received Telephone Order from Selena Sunshine for DC ENTERED DATE: 03/30/21 17:58 CT COMMENT TYPE: Discharge Planning REVIEWER: Kezia Porter After obtaining verbal consent, CM met with patient to discuss discharge planning / needs. CM discussed availability of home health, rehab services, and medical equipment. Patient states she would like to go to rehab upon hospital discharge. CM explained and patient signed NICA for [facility] IRF as her first choice and SNF at [facility] is her second choice. Patient lives at home with her who is legally blind and legally deaf. States prior to hospitalization she was independent and took care of her . States she has home CPAP, Home Oxygen Concentrator, and Portable Oxygen. States she got her DME from [facility]. States prior to hospitalization she only used oxygen when she walked fast and that she just made sure to walk slow so she didn't have to use it. Denies any other discharge planning needs at this time. CM will continue to follow and assist with discharge planning needs. DCP REVIEW SUMMARY ANTICIPATED D/C DATE: EXPECTED LOS : CASE STATUS: DCP Initiated INITIAL REVIEW: 03/10/2021 INITIAL REVIEWER: Kezia Porter FINAL DISCHARGE DISPOSITION: : FINAL REVIEWER: FINAL REVIEW DATE: DCP Focus Questions & Answers DCP Screen QUESTION: ANSWER High Risk Factors: : Hosp related to CHF, COPD, DM, End Stage Ds, CVA, CA DCP Evaluation QUESTION: ANSWER Family / Caregiver's ability to cope with chronic illness: : a. Adequate (ability to meet patient's medical needs, ensures patient attends medical appts.) Patient gives permission to discuss discharge plans with: (name, relationship and number) : Anjel Roa, spouse, Patient's ability to cope with chronic illness : a. Adequate (0-3 ED visits in 6 mos., adequate financial resources, attends scheduled appts.) Patient's current cognitive status: : *Oriented to person, place, situation, time and present Patient and/or caregiver agree upon recommended discharge plan? : Yes Physical Status: : Independent with ADL's Functional screen assessment: : New onset of change in functional mobility Does the patient have the ability to pay for or attain post discharge needs / services? : Yes Alternate discharge plan (if recommended plan not agreed upon by patient and/or caregiver): : 1st choice is [facility] IRF 2nd choice is SNF at [facility] Is there a likelihood that the patient will require additional services to return to the preadmission environment? : Yes Equipment needed for post hospitalization: : None Baseline cognitive status: : *Oriented to person, place, situation, time and present Patient with capacity for self-care or can be cared for in same environment as prior to hospitalization? : No Results of this evaluation have been discussed with: : Patient Preadmission facility can/cannot provide post hospital level of care needs: : Cannot - at higher level of care than preadmission Physical environment modification needed / anticipated for discharge: : No Medication Management: : Patient states can afford medications Pharmacy name(s): : [facility] [address] Planned post hospital services available for patient? : Yes Does Patient have transportation to get home and to follow-up medical appointments when discharged from the hospital? : Yes Planned post hospital services covered by insurance plan? : Yes Would patient like to participate in any Care Coordination programs (if applicable): : Not applicable Does the patient have electricity at home? : Yes Does the patient have running water in their house? : Yes Equipment in use: : CPAP Equipment in use: : Glucometer Equipment in use: : Home Oxygen with Nasal Cannula Other Equipment comments: : has portable O2 Mental health screen: : No mental health history Psychosocial status: : Independent adult (65+) Abuse/Neglect: : None Resources / Services in place: : None DCP Re-evaluation QUESTION: ANSWER Would patient like to participate in any Care Coordination programs (if applicable): : Not applicable PATIENT: SOPHIA ROA ENCOUNTER: [id number] MEDICAL RECORD#: [id number] ADMISSION DATE: 03/10/2021 DISCHARGE DATE: ATTENDING MD: MEGAN MCCORMICK : AGE: 85 MARITAL STATUS: M DC PLAN ID: [id number] FACILITY: [facility] PRINTED ON: 04/02/21 16:38 CT All edits/amendments must be made on the electronic document DICTATION DATE: 04/02/211637 PRODUCT MANAGEMENT SPECIALIST: ALF 04/02/211637 RPT#: [id number] DC DATE: STATUS: ADM IN [facility] [address] [place] [address] END OF REPORT
[2021-04-02] MEDS ORDERED: ATIVAN IV (16:40)
[2021-04-02] MEDS ORDERED: MORPHINE 44 MG/1 M1 IV (16:40)
--- NOTE | 2021-04-02 17:49 | NUR ---
[facility] CALLED FOR TRANSPORT FOR DIRECT ADMIT TO [facility]. REPORT CALLED TO RUTH ANN NASCIMENTO RN.
--- NOTE | 2021-04-02 21:32 | MORECARE ---
CASE MANAGEMENT DISCHARGE SUMMARY PATIENT: SOPHIA ROA UNIT: [id number] ADM DATE: 03/10/21 AGE: 85 : 37 SEX: F ROOM/BED: D.2235 AUTHOR: GIGI,DOC PHYSICIAN: REFERRING PHYSICIAN: MEGAN CORONADO MD DATE OF SERVICE: 04/02/21 Case Management Discharge Planning Summary COMMENTS ENTERED DATE: 04/02/21 16:32 CT COMMENT TYPE: Discharge Planning REVIEWER: Kavon El [facility]. Received phone call from [facility]. Patient's family would like the patient to be evaluated and discharged to [facility] inpatient facility. NICA signed and placed in chart. Clinical documents faxed, printed, and placed at the nurse's station. CM will continue to follow and will assist as needed with dc plans/needs. Appended by Kavon El on 04/02/2021 16:34 CDT: Received Telephone Order from Selena Sunshine for DC ENTERED DATE: 03/30/21 17:58 CT COMMENT TYPE: Discharge Planning REVIEWER: Kezia Porter After obtaining verbal consent, CM met with patient to discuss discharge planning / needs. CM discussed availability of home health, rehab services, and medical equipment. Patient states she would like to go to rehab upon hospital discharge. CM explained and patient signed NICA for [facility] IRF as her first choice and SNF at [facility] is her second choice. Patient lives at home with her who is legally blind and legally deaf. States prior to hospitalization she was independent and took care of her . States she has home CPAP, Home Oxygen Concentrator, and Portable Oxygen. States she got her DME from [facility]. States prior to hospitalization she only used oxygen when she walked fast and that she just made sure to walk slow so she didn't have to use it. Denies any other discharge planning needs at this time. CM will continue to follow and assist with discharge planning needs. DCP REVIEW SUMMARY ANTICIPATED D/C DATE: EXPECTED LOS : CASE STATUS: DCP Initiated INITIAL REVIEW: 03/10/2021 INITIAL REVIEWER: Kezia Porter FINAL DISCHARGE DISPOSITION: : FINAL REVIEWER: FINAL REVIEW DATE: DCP Focus Questions & Answers DCP Screen QUESTION: ANSWER High Risk Factors: : Hosp related to CHF, COPD, DM, End Stage Ds, CVA, CA DCP Evaluation QUESTION: ANSWER Patient's ability to cope with chronic illness : a. Adequate (0-3 ED visits in 6 mos., adequate financial resources, attends scheduled appts.) Patient gives permission to discuss discharge plans with: (name, relationship and number) : Anjel Roa, spouse, Patient's current cognitive status: : *Oriented to person, place, situation, time and present Family / Caregiver's ability to cope with chronic illness: : a. Adequate (ability to meet patient's medical needs, ensures patient attends medical appts.) Patient and/or caregiver agree upon recommended discharge plan? : Yes Physical Status: : Independent with ADL's Functional screen assessment: : New onset of change in functional mobility Does the patient have the ability to pay for or attain post discharge needs / services? : Yes Alternate discharge plan (if recommended plan not agreed upon by patient and/or caregiver): : 1st choice is [facility] IRF 2nd choice is SNF at [facility] Is there a likelihood that the patient will require additional services to return to the preadmission environment? : Yes Equipment needed for post hospitalization: : None Baseline cognitive status: : *Oriented to person, place, situation, time and present Patient with capacity for self-care or can be cared for in same environment as prior to hospitalization? : No Results of this evaluation have been discussed with: : Patient Preadmission facility can/cannot provide post hospital level of care needs: : Cannot - at higher level of care than preadmission Physical environment modification needed / anticipated for discharge: : No Medication Management: : Patient states can afford medications Pharmacy name(s): : [facility] on [facility] [address] Planned post hospital services available for patient? : Yes Does Patient have transportation to get home and to follow-up medical appointments when discharged from the hospital? : Yes Planned post hospital services covered by insurance plan? : Yes Would patient like to participate in any Care Coordination programs (if applicable): : Not applicable Does the patient have electricity at home? : Yes Does the patient have running water in their house? : Yes Equipment in use: : CPAP Equipment in use: : Glucometer Equipment in use: : Home Oxygen with Nasal Cannula Other Equipment comments: : has portable O2 Mental health screen: : No mental health history Psychosocial status: : Independent adult (65+) Abuse/Neglect: : None Resources / Services in place: : None DCP Re-evaluation QUESTION: ANSWER Would patient like to participate in any Care Coordination programs (if applicable): : Not applicable PATIENT: SOPHIA ROA ENCOUNTER: [id number] MEDICAL RECORD#: [id number] ADMISSION DATE: 03/10/2021 DISCHARGE DATE: 04/02/2021 ATTENDING MD: MEGAN MCCORMICK : 1935- AGE: 85 MARITAL STATUS: M DC PLAN ID: [id number] FACILITY: [facility] PRINTED ON: 04/02/21 21:31 CT All edits/amendments must be made on the electronic document DICTATION DATE: 04/02/212130 PNEUMATIC SYSTEMS OPERATOR: ALF 04/02/212130 RPT#: [id number] DC DATE:04/02/21 STATUS: DIS IN [facility] [address] [place] [address] END OF REPORT
--- NOTE | 2021-04-03 14:14 | MORECARE ---
CASE MANAGEMENT DISCHARGE SUMMARY PATIENT: SOPHIA ROA UNIT: [id number] ADM DATE: 03/10/21 AGE: 85 : 37 SEX: F ROOM/BED: D.2235 AUTHOR: GIGI,DOC PHYSICIAN: REFERRING PHYSICIAN: MEGAN CORONADO MD DATE OF SERVICE: 04/03/21 Case Management Discharge Planning Summary COMMENTS ENTERED DATE: 04/02/21 16:32 CT COMMENT TYPE: Discharge Planning REVIEWER: Kavon El [facility]. Received phone call from [facility]. Patient's family would like the patient to be evaluated and discharged to [facility] inpatient facility. NICA signed and placed in chart. Clinical documents faxed, printed, and placed at the nurse's station. CM will continue to follow and will assist as needed with dc plans/needs. Appended by Kavon El on 04/02/2021 16:34 CDT: Received Telephone Order from Selena Sunshine for DC ENTERED DATE: 03/30/21 17:58 CT COMMENT TYPE: Discharge Planning REVIEWER: Kezia Porter After obtaining verbal consent, CM met with patient to discuss discharge planning / needs. CM discussed availability of home health, rehab services, and medical equipment. Patient states she would like to go to rehab upon hospital discharge. CM explained and patient signed NICA for [facility] IRF as her first choice and SNF at [facility] is her second choice. Patient lives at home with her who is legally blind and legally deaf. States prior to hospitalization she was independent and took care of her . States she has home CPAP, Home Oxygen Concentrator, and Portable Oxygen. States she got her DME from [facility]. States prior to hospitalization she only used oxygen when she walked fast and that she just made sure to walk slow so she didn't have to use it. Denies any other discharge planning needs at this time. CM will continue to follow and assist with discharge planning needs. DCP REVIEW SUMMARY ANTICIPATED D/C DATE: EXPECTED LOS : CASE STATUS: DCP Initiated INITIAL REVIEW: 03/10/2021 INITIAL REVIEWER: Kezia Porter FINAL DISCHARGE DISPOSITION: : FINAL REVIEWER: FINAL REVIEW DATE: DCP Focus Questions & Answers DCP Screen QUESTION: ANSWER High Risk Factors: : Hosp related to CHF, COPD, DM, End Stage Ds, CVA, CA DCP Evaluation QUESTION: ANSWER Patient and/or caregiver agree upon recommended discharge plan? : Yes Family / Caregiver's ability to cope with chronic illness: : a. Adequate (ability to meet patient's medical needs, ensures patient attends medical appts.) Patient's current cognitive status: : *Oriented to person, place, situation, time and present Patient gives permission to discuss discharge plans with: (name, relationship and number) : Anjel Roa, spouse, Patient's ability to cope with chronic illness : a. Adequate (0-3 ED visits in 6 mos., adequate financial resources, attends scheduled appts.) Alternate discharge plan (if recommended plan not agreed upon by patient and/or caregiver): : 1st choice is [facility] IRF 2nd choice is SNF at [facility] Does the patient have the ability to pay for or attain post discharge needs / services? : Yes Functional screen assessment: : New onset of change in functional mobility Physical Status: : Independent with ADL's Equipment needed for post hospitalization: : None Is there a likelihood that the patient will require additional services to return to the preadmission environment? : Yes Results of this evaluation have been discussed with: : Patient Patient with capacity for self-care or can be cared for in same environment as prior to hospitalization? : No Baseline cognitive status: : *Oriented to person, place, situation, time and present Physical environment modification needed / anticipated for discharge: : No Preadmission facility can/cannot provide post hospital level of care needs: : Cannot - at higher level of care than preadmission Medication Management: : Patient states can afford medications Planned post hospital services available for patient? : Yes Pharmacy name(s): : [facility] on [address] Planned post hospital services covered by insurance plan? : Yes Does Patient have transportation to get home and to follow-up medical appointments when discharged from the hospital? : Yes Would patient like to participate in any Care Coordination programs (if applicable): : Not applicable Does the patient have electricity at home? : Yes Does the patient have running water in their house? : Yes Equipment in use: : Home Oxygen with Nasal Cannula Equipment in use: : Glucometer Equipment in use: : CPAP Other Equipment comments: : has portable O2 Mental health screen: : No mental health history Psychosocial status: : Independent adult (65+) Abuse/Neglect: : None Resources / Services in place: : None DCP Re-evaluation QUESTION: ANSWER Would patient like to participate in any Care Coordination programs (if applicable): : Not applicable PATIENT: SOPHIA ROA ENCOUNTER: [id number] MEDICAL RECORD#: [id number] ADMISSION DATE: 03/10/2021 DISCHARGE DATE: 04/02/2021 ATTENDING MD: MEGAN MCCORMICK : 1935- AGE: 85 MARITAL STATUS: M DC PLAN ID: [id number] FACILITY: [facility] PRINTED ON: 04/03/21 14:14 CT All edits/amendments must be made on the electronic document DICTATION DATE: 04/03/211413 STORE STOCKER: ALF 04/03/21 141 RPT#: [id number] DC DATE:04/02/21 STATUS: DIS IN [facility] [address] [place] [address] END OF REPORT
== END 2021-04-02 21:27 | disposition hospice, inpatient (51) | DRG 163 ==
LOC: D.ER 12:02 → D.ICU 13:53 → D.MS 03-30 15:09
PROVIDERS: Emergency Medicine; Family Medicine; Internal Medicine Cardiovascular Disease; Internal Medicine Pulmonary Disease; ADMIT Family Medicine Adult Medicine; ATTEND Family Medicine Adult Medicine
PROC: 0W3Q8ZZ Control Bleeding in Respiratory Tract, Via Natural or Artificial Opening Endoscopic (ICD-10-PCS; principal; 2021-03-10)
PROC: 0BH17EZ Insertion of Endotracheal Airway into Trachea, Via Natural or Artificial Opening (ICD-10-PCS; 2021-03-10)
PROC: 5A1955Z Respiratory Ventilation, Greater than 96 Consecutive Hours (ICD-10-PCS; 2021-03-10)
PROC: 0B968ZZ Drainage of Right Lower Lobe Bronchus, Via Natural or Artificial Opening Endoscopic (ICD-10-PCS; 2021-03-11)
PROC: 0BJ08ZZ Inspection of Tracheobronchial Tree, Via Natural or Artificial Opening Endoscopic (ICD-10-PCS; 2021-03-12)
PROC: 05H633Z Insertion of Infusion Device into Left Subclavian Vein, Percutaneous Approach (ICD-10-PCS; 2021-03-13)
PROC: B547ZZA Ultrasonography of Left Subclavian Vein, Guidance (ICD-10-PCS; 2021-03-13)
PROC: 0B9F8ZZ Drainage of Right Lower Lung Lobe, Via Natural or Artificial Opening Endoscopic (ICD-10-PCS; 2021-03-14)
PROC: 0B718DZ Dilation of Trachea with Intraluminal Device, Via Natural or Artificial Opening Endoscopic (ICD-10-PCS; 2021-03-17)
PROC: 0W993ZZ Drainage of Right Pleural Cavity, Percutaneous Approach (ICD-10-PCS; 2021-03-20)
DX: J96.01 Acute respiratory failure with hypoxia (principal); J18.9 Pneumonia, unspecified organism; J98.11 Atelectasis; R04.89 Hemorrhage from other sites in respiratory passages; J90 Pleural effusion, not elsewhere classified; J44.9 Chronic obstructive pulmonary disease, unspecified; I10 Essential (primary) hypertension; E11.9 Type 2 diabetes mellitus without complications; E78.5 Hyperlipidemia, unspecified; Z79.84 Long term (current) use of oral hypoglycemic drugs; I49.5 Sick sinus syndrome; I44.39 Other atrioventricular block; Z66 Do not resuscitate